=== PATIENT | female | born 1945 | race Caucasian/White ===

== ENCOUNTER 2022-12-01 16:17 | Emergency (ER) | payer MEDICARE, SELFPAY ==
[2022-12-01] VITALS (10 sets, daily range): BP systolic 137–172; BP diastolic 77–95; PULSE 65–88; RESP 14–27; TEMP 36.9; O2SAT 95–98; BMI 24.6
--- NOTE | 2022-12-01 16:38 | CT_ITS ---
The [address] [address] Patient Name: KALINA BRITO MRN: [id number] date: 1945 Sex: F Assigned Patient Location: ER Current Patient Location: ER Accession/Order Number: [id number] Exam Date: 12/01/2022 16:42 Report Date: 12/01/2022 17:07 At the request of: ROBINSON SILVEIRA Procedure: CT stroke head/brain wo con CT stroke head/brain wo con, 12/01/2022 4:42 PM EDT INDICATION: nuero decifeits COMPARISON: 08/28/2018 . TECHNIQUE: Axial CT images of the brain from skull base to vertex, including portions of the face and sinuses, were obtained without contrast. Multiplanar reformatted images were generated and reviewed as needed. Dose reduction techniques were achieved by using automated exposure control and/or adjustment of mA and/or kV according to patient size and/or use of iterative reconstruction technique. FINDINGS: CEREBRUM: Age-appropriate atrophy is present, without visible acute hemorrhage or lesion. Periventricular low density change is demonstrated, consistent with chronic small vessel disease. CEREBELLUM: No edema, hemorrhage, mass, acute infarction, or inappropriate atrophy. BRAINSTEM: No acute infarct, hemorrhage or gross structural abnormality. CSF SPACES: Ventricles, cisterns, and sulci are appropriate for age. No hydrocephalus, subarachnoid hemorrhage, or mass. SKULL: No mass or other significant visible lesion. SINUSES: Limited views demonstrate no significant mucosal thickening or fluid. ORBITS: Limited views are unremarkable. OTHER: None. IMPRESSION: Age-related deep white matter changes consistent with chronic small vessel disease superimposed on overall findings of age-appropriate cortical atrophy. No acute intracranial abnormality is otherwise identified. Critical results were NOTIFIED by TELEPHONE BY Dr. Jermaine Leonard MD to Leila, volunteer services assistant to At 12/01/2022 5:01 PM EDT. Electronically authenticated by: Jermaine LEONARD Date: 12/01/2022 17:07
--- NOTE | 2022-12-01 16:52 | ECG_ITS ---
The [facility] Test Date: 2022-12-01 Pat Name: Peggy Noe Department: Room: - Gender: Female Director Pharmacovigilance: : 1945 Requested By: ARMANI BRICE Order Number: [id number] Reading MD: JOEY BRISCOE Measurements Intervals [place] Rate: 73 P: 76 CO: 150 QRS: 69 QRSD: 80 T: 64 QT: 394 QTc: 420 Interpretive Statements 1100 Sinus rhythm 1102 Sinus arrhythmia 6220 Possible left atrial enlargement 9130 borderline ECG No previous ECG available for comparison Electronically Signed On 12-02-2022 7:19:54 EDT by JOEY BRISCOE
[2022-12-01 17:19] LABS: Basophils Absolute Auto 0.1 10^3/uL (0.0-0.1); Basophils Percent Auto 1.1 % (0.2-2.0); Eosinophils Absolute Auto 0.3 10^3/uL (0.0-0.7); Eosinophils Percent Auto 2.7 % (0.9-7.0); Hematocrit 32.8 % (36.0-48.0); Hemoglobin 10.6 g/dL (12.0-16.0); Immature Granulocytes Abs Auto 0.03 10^3/uL (0.00-0.03); Immature Granulocytes Pct Auto 0.3 % (0.0-0.5); Lymphocytes Absolute Auto 2.1 10^3/uL (1.2-3.8); Lymphocytes Percent Auto 22.8 % (20.5-60.0); Mean Corpuscular HGB Conc 32.3 g/dL (29.9-35.2); Mean Corpuscular Hemoglobin 29.4 pg (26.7-34.0); Mean Corpuscular Volume 91.1 fL (81.0-99.0); Mean Platelet Volume 10.6 fL (9.5-13.5); Monocytes Absolute Auto 0.8 10^3/uL (0.3-0.8); Monocytes Percent Auto 8.5 % (1.7-12.0); Neutrophils Absolute Auto 6.1 10^3/uL (1.4-6.5); Neutrophils Percent Auto 64.6 % (43.0-75.0); Platelet Count 360 10^3/uL (150-450); Red Cell Distribution Width 13.1 % (11.0-15.0); White Blood Count 9.4 10^3/uL (4.0-11.0)
[2022-12-01 17:37] LABS: Alanine Aminotransferase 15 U/L (14-59); Albumin Globulin Ratio 0.8; Albumin Level 3.3 g/dL (3.4-5.0); Alkaline Phosphatase 74 U/L (46-116); Anion Gap 14.5; Aspartate Amino Transferase 14 U/L (15-37); BUN Creatinine Ratio 20.8; Bilirubin Total 0.3 mg/dL (0.2-1.0); Calcium 9.4 mg/dL (8.5-10.1); Carbon Dioxide 24.2 mmol/L (21.0-32.0); Chloride 99 mmol/L (98-107); Estimated GFR (African America 53 (>=60); Estimated GFR (Non-African Ame 44 (>=60); Glucose 90 mg/dL (74-106); Potassium 3.7 mmol/L (3.5-5.1); Sodium 134 mmol/L (136-145); Total Protein 7.3 g/dL (6.4-8.2); Troponin I High Sensitivity 5.9 pg/mL (4.0-51.3)
--- NOTE | 2022-12-01 18:04 | ED_ITS ---
HPI - General Adult General Chief complaint: Neuro Symptoms/Deficit Stated complaint: URTI Time Seen by Provider: 12/01/22 18:03 Source: patient and family Mode of arrival: ambulance History of Present Illness HPI narrative: This document has been composed with a new electronic medical record and [employer] voice recognition system. This document may not fully inaccurately reflect the entirety of the patient encounter. this patient was brought to us by EMS for complaint of weakness and not feeling good for several days. She seemed to indicate that she seemed be having more weakness on her left side. She's had a previous stroke that has never completely cleared up with residual left-sided weakness and choppy speech. This information was provided by her son who came in to assist us in managing her in evaluating her. She does not have a severe headache. She was taken to CT imaging suite from the ambulance. The radiologist called me nearly immediately and it was a negative for acute process CT scan. Upon returning the room reconducted more of a history and physical provided by both the son and soon-to-be [id number] and the patient herself. She was actually a pretty good historian. He says that she's had increasing cough and congestion with thick sputum. She says it is clear. She continues to smoke tobacco products. She's had some diarrhea. She's not had any vomiting. Has not been running a fever at home but she is aware of. She does have nebulizers at home for her underlying lung disease. Related Data Allergies Allergy/AdvReac Type Severity Reaction Status Date / Time prednisone Allergy Intermediate Verified 12/01/22 16:37 Exam Narrative Exam Narrative: as noted above she was taken directly to imaging upon her arrival. Upon returning I found him to be awake alert oriented ?3 fully cooperative not repeating herself denies any head or neck pain or headache. Constitutional Vital Signs - 24 hr 12/01/22 16:30 12/01/22 16:52 12/01/22 16:54 Temperature 98.4 F Pulse Rate 82 81 Pulse Rate [Monitor] 88 Respiratory Rate 20 14 19 Blood Pressure 148/95 H Blood Pressure [Left Arm] 172/77 H Pulse Oximetry 98 97 Oxygen Delivery Method Room Air 12/01/22 16:54 12/01/22 16:54 12/01/22 17:00 Temperature Pulse Rate 85 79 79 Pulse Rate [Monitor] Respiratory Rate 26 H 19 21 Blood Pressure 148/95 H 147/87 H Blood Pressure [Left Arm] Pulse Oximetry 96 97 96 Oxygen Delivery Method 12/01/22 17:15 12/01/22 17:30 12/01/22 17:45 Temperature Pulse Rate 75 65 71 Pulse Rate [Monitor] Respiratory Rate 22 21 16 Blood Pressure 141/85 H 138/84 H 140/80 H Blood Pressure [Left Arm] Pulse Oximetry 96 95 96 Oxygen Delivery Method 12/01/22 17:45 12/01/22 18:00 12/01/22 18:16 Temperature Pulse Rate 79 76 74 Pulse Rate [Monitor] Respiratory Rate 15 19 21 Blood Pressure 140/80 H 141/93 H 137/80 H Blood Pressure [Left Arm] Pulse Oximetry 95 95 Oxygen Delivery Method HENCO Common normals: normocephalic, head/scalp atraumatic and hearing grossly normal bilaterally Head and scalp: normal to inspection Face and sinus: normal facial exam Mouth: oral and palatal mucosa normal Throat: posterior oropharynx normal; uvula not laterally displaced Neck & C-Spine Common normals: full ROM and supple Respiratory Auscultation: rales and rhonchi GI Common normals: Normal to inspection, nondistended, normoactive bowel sounds present Neuro Common normals: oriented x3 and CN's II-XII intact bilaterally Sensorium/orientation: awake, alert, oriented to person, oriented to place and oriented to time Meningeal signs: no meningeal signs; no nuccal rigidity Cranial nerves: CN normal except as noted Speech: abnormal speech (very slight chopped stuttering speech which the son and the patient both ad) Motor exam: no tremor noted and strength abnormal (antigravity muscles left leg slightly weak when compared to her right leg. ) Course Vital Signs Vital signs: Vital Signs Temperature 98.4 F 12/01/22 16:30 Pulse Rate 88 12/01/22 16:30 Respiratory Rate 20 12/01/22 16:30 Blood Pressure 172/77 H 12/01/22 16:30 Pulse Oximetry 98 12/01/22 16:30 Oxygen Delivery Method Room Air 12/01/22 16:30 Temperature 98.4 F 12/01/22 16:30 Pulse Rate 74 12/01/22 18:16 Respiratory Rate 21 12/01/22 18:16 Blood Pressure 137/80 H 12/01/22 18:16 Pulse Oximetry 95 06/06/23 18:00 Oxygen Delivery Method Room Air 12/01/22 16:30 Medical Decision Making MDM Narrative Medical decision making narrative: This document has been composed with a new electronic medical record and dragging voice recognition system. This document may not fully inaccurately reflect the entirety of the patient encounter. Patient's family and my clinical exam confirmed that note of her findings are acute today. Her chest x-ray had some linear atelectasis but her symptoms would suggest appeared acute. Bronchitis. We will go ahead and treat her based on those symptoms and the clinical exam. She is not in any extremis and there is no respiratory distress.She has mild elevation of her renal function tests. Lab Data Labs: Lab Results 12/01/22 Range/Units 16:52 WBC 9.4 (4.0-11.0) 10^3/uL RBC 3.60 L (4.20-5.40) 10^6/uL Hgb 10.6 L (12.0-16.0) g/dL Hct 32.8 L (36.0-48.0) % MCV 91.1 (81.0-99.0) fL MCH 29.4 (26.7-34.0) pg MCHC 32.3 (29.9-35.2) g/dL RDW 13.1 (11.0-15.0) % Plt Count 360 (150-450) 10^3/uL MPV 10.6 (9.5-13.5) fL Neut % (Auto) 64.6 (43.0-75.0) % Lymph % (Auto) 22.8 (20.5-60.0) % [place] % (Auto) 8.5 (1.7-12.0) % Eos % (Auto) 2.7 (0.9-7.0) % Baso % (Auto) 1.1 (0.2-2.0) % Neut # (Auto) 6.1 (1.4-6.5) 10^3/uL Lymph # (Auto) 2.1 (1.2-3.8) 10^3/uL [place] # (Auto) 0.8 (0.3-0.8) 10^3/uL Eos # (Auto) 0.3 (0.0-0.7) 10^3/uL Baso # (Auto) 0.1 (0.0-0.1) 10^3/uL Abs Immat Gran (auto) 0.03 (0.00-0.03) 10^3/uL Imm/Tot Granulo (auto) 0.3 (0.0-0.5) % Sodium 134 L (136-145) mmol/L Potassium 3.7 (3.5-5.1) mmol/L Chloride 99 (98-107) mmol/L Carbon Dioxide 24.2 (21.0-32.0) mmol/L Anion Gap 14.5 BUN 25.0 H (7.0-18.0) mg/dL Creatinine 1.20 H (0.55-1.02) mg/dL Est GFR ( Amer) 53 L (>=60) Est GFR (Non-Af Amer) 44 L (>=60) BUN/Creatinine Ratio 20.8 Glucose 90 (74-106) mg/dL Calcium 9.4 (8.5-10.1) mg/dL Total Bilirubin 0.3 (0.2-1.0) mg/dL AST 14 L (15-37) U/L ALT 15 (14-59) U/L Alkaline Phosphatase 74 (46-116) U/L Troponin I High Sens 5.9 (4.0-51.3) pg/mL Total Protein 7.3 (6.4-8.2) g/dL Albumin 3.3 L (3.4-5.0) g/dL Globulin 4.0 g/dL Albumin/Globulin Ratio 0.8 Discharge Plan Discharge Chief Complaint: Neuro Symptoms/Deficit Referrals: ARMANI BRICE [Primary Care Provider] - 1 week
--- NOTE | 2022-12-01 18:06 | XR_ITS ---
The [place] [id number] Patient Name: KALINA BRITO MRN: [id number] date: 1945 Sex: F Assigned Patient Location: ER Current Patient Location: ER Accession/Order Number: [id number] Exam Date: 12/01/2022 18:17 Report Date: 12/01/2022 19:19 At the request of: ROBINSON SILVEIRA Procedure: XR chest 1V ONE-VIEW CHEST RADIOGRAPH, 12/01/2022 6:17 PM EDT COMPARISON: Chest, 06/06/2022. CLINICAL HISTORY: Cough. Findings and impression: 1. Patient is slightly rotated to the left accentuating cardiomediastinal silhouette to the left of midline. 2. Patient has likely had prior right mastectomy with right axillary node dissection. Correlate with prior surgical history. 3. No acute pulmonary disease. 4. Borderline heart size. 5. No acute osseous abnormality. Electronically authenticated by: Everette MC Date: 12/01/2022 19:19
== END 2022-12-01 19:14 | disposition home or self-care (01) ==
PROVIDERS: Emergency Provider Emergency Medicine Emergency Medical Services; PCP Family Medicine
DX: J20.9 Acute bronchitis, unspecified (principal); I69.328 Other speech and language deficits following cerebral infarction; I69.354 Hemiplegia and hemiparesis following cerebral infarction affecting left non-dominant side; Z72.0 Tobacco use
CPT/HCPCS: 36415; 70450; 71045; 80053; 84484; 85025; 93005; 99285

== ENCOUNTER 2022-12-10 11:54 | Outpatient (OUT) | payer MEDICARE, SELFPAY ==
--- NOTE | 2022-12-10 12:03 | XR_ITS ---
The [place] [id number] Patient Name: KALINA BRITO MRN: [id number] date: 1945 Sex: F Assigned Patient Location: [facility] Current Patient Location: RAD Accession/Order Number: [id number] Exam Date: 12/10/2022 12:10 Report Date: 12/10/2022 12:38 At the request of: ARMANI BRICE Procedure: XR chest 2V EXAM: XR chest 2V HISTORY: COPD J44.1 COMPARISON: 12/01/2022 TECHNIQUE: PA and lateral views of the chest. FINDINGS: There is no focal airspace consolidation or acute infiltrate. The lungs are hyperinflated. The cardiomediastinal silhouette is not enlarged. No evidence of pleural effusion or pneumothorax are identified. No acute osseous abnormality. There is appearance of right mastectomy. IMPRESSION: No acute cardiopulmonary process. Lungs appear hyperinflated, suggestive of obstructive lung disease. Electronically authenticated by: SANDRA SUAREZ Date: 12/10/2022 12:38
== END 2022-12-10 11:55 ==
LOC: RAD 11:56
PROVIDERS: PCP Family Medicine; Visit Provider Family Medicine
DX: J44.1 Chronic obstructive pulmonary disease with (acute) exacerbation (principal)
CPT/HCPCS: 71046

== ENCOUNTER 2023-09-22 00:02 | Emergency (ER) | payer MEDICARE, SELFPAY ==
[2023-09-22] VITALS (19 sets, daily range): BP systolic 148–168; BP diastolic 90–121; PULSE 60–98; RESP 16–27; TEMP 36.5; O2SAT 94–100; BMI 24.1
--- NOTE | 2023-09-22 00:21 | ECG_ITS ---
The [facility] Test Date: 2023-09-22 Pat Name: KALINA BRITO Department: Room: - Gender: Female Embedded Software Engineer: : 1945 Requested By: ARMANI BRICE Order Number: [id number] Reading MD: JOEY BRISCOE Measurements Intervals [place] Rate: 64 P: 55 LA: 144 QRS: 73 QRSD: 76 T: 79 QT: 378 QTc: 387 Interpretive Statements 1100 Sinus rhythm 9110 normal ECG Compared to ECG 12/01/2022 16:52:23 Sinus arrhythmia no longer present Electronically Signed On 09-22-2023 23:06:08 EDT by JOEY BRISCOE
--- NOTE | 2023-09-22 00:21 | XR_ITS ---
The [place] [id number] Patient Name: KALINA BRITO MRN: [id number] date: 1945 Sex: F Assigned Patient Location: ER Current Patient Location: ER Accession/Order Number: [id number] Exam Date: 09/22/2023 00:28 Report Date: 09/22/2023 01:14 At the request of: PADMINI BO Procedure: XR chest 1V EXAMINATION: XR chest 1V HISTORY: SOB COMPARISON: 12/01/2022 FINDINGS: There is no focal airspace consolidation. There is no appreciable pneumothorax or pleural effusion. The pulmonary vascularity is within normal limits for technique. The cardiomediastinal silhouette is within normal limits. XR/XR chest 1V IMPRESSION: Lungs are clear of airspace consolidation. Electronically authenticated by: CHRISTA MILNER Date: 09/22/2023 01:14
--- NOTE | 2023-09-22 00:22 | ED.SOB1 ---
HPI - SOB/Dyspnea General Chief Complaint: Shortness of Breath/Dyspnea Stated Complaint: SOB Time Seen by Provider: 09/22/23 00:10 Source: patient Mode of arrival: Wheelchair Limitations: no limitations History of Present Illness HPI Narrative: 78-year-old female presents for shortness of breath. She has had cold symptoms for a week and she ran out of her inhaler 2 to 3 days ago. Tonight she developed worsening shortness of breath and has been wheezing and she came in here. She has been coughing up a small amount of white phlegm but has not had a fever or hemoptysis. She does not complain to me of chest pain. Related Data Previous Rx's ?Medication ?Instructions ?Recorded albuterol sulfate 90 mcg/actuation 2 inh inhalation Q4H PRN shortness 09/22/23 aerosol inhaler of breath or wheezing #8.5 grams azithromycin 250 mg tablet See Rx Instructions PO .COMPLEX #6 09/22/23 (Zithromax Z-René) tabs Allergies Allergy/AdvReac Type Severity Reaction Status Date / Time prednisone Allergy Intermediate Verified 09/22/23 00:10 Review of Systems ROS Narrative A ten point review of systems is negative except as noted above. Exam Narrative Exam Narrative: Nurses note and vital signs reviewed and patient is not hypoxic. General: The patient appears well and in no apparent distress. Patient is resting comfortably on cart. Skin: Warm, dry, no pallor noted. There is no rash noted. Head: Normocephalic, atraumatic Eye: Normal conjunctiva, no drainage Ears, Nose, Mouth, and Throat: oral mucosa is moist. Nares patent. Cardiovascular: Regular Rate and Rhythm Respiratory: Bilateral rhonchi present, breath sounds equal Back: non-tender GI: Soft and nontender Musculoskeletal: The patient has no evidence of calf tenderness, no pitting edema, symmetrical pulses noted bilaterally Neurological: A&O, normal speech Psychiatric: Cooperative Constitutional Vital Signs, click to edit/add: Last Vital Signs Temp 97.7 F 09/22/23 00:07 Pulse 68 09/22/23 01:33 Resp 16 09/22/23 01:33 BP 168/90 H 09/22/23 00:07 Pulse Ox 99 09/22/23 01:33 O2 Del Method Room Air 09/22/23 01:33 Course Vital Signs Vital signs: Vital Signs Temperature 97.7 F 09/22/23 00:07 Pulse Rate 82 09/22/23 00:07 Respiratory Rate 18 09/22/23 00:07 Blood Pressure 168/90 H 09/22/23 00:07 Pulse Oximetry 97 09/22/23 00:07 Oxygen Delivery Method Room Air 09/22/23 00:07 Temperature 97.7 F 09/22/23 00:07 Pulse Rate 68 09/22/23 01:33 Respiratory Rate 16 09/22/23 01:33 Blood Pressure 168/90 H 09/22/23 00:07 Pulse Oximetry 99 09/22/23 01:33 Oxygen Delivery Method Room Air 09/22/23 01:33 MDM - SOB/Dyspnea MDM Narrative Medical decision making narrative: The patient is feeling much better after aerosol treatments and IV Solu-Medrol. She is being discharged home. Findings are discussed with the patient. She is comfortable with the plan of being discharged home. Differential Diagnosis Differential diagnosis: Likely acute exacerbation of chronic obstructive airways disease, congestive heart failure, community acquired pneumonia and other (COVID, influenza) Lab Data Attestation: I reviewed the patient's lab results. Labs: Lab Results 09/22/23 09/22/23 Range/Units 00:10 00:15 WBC 9.4 (4.0-11.0) 10^3/uL RBC 3.57 L (4.20-5.40) 10^6/uL Hgb 10.8 L (12.0-16.0) g/dL Hct 33.8 L (36.0-48.0) % MCV 94.7 (81.0-99.0) fL MCH 30.3 (26.7-34.0) pg MCHC 32.0 (29.9-35.2) g/dL RDW 13.7 (11.0-15.0) % Plt Count 318 (150-450) 10^3/uL MPV 10.4 (9.5-13.5) fL Neut % (Auto) 48.8 (43.0-75.0) % Lymph % (Auto) 39.0 (20.5-60.0) % [place] % (Auto) 6.5 (1.7-12.0) % Eos % (Auto) 4.1 (0.9-7.0) % Baso % (Auto) 1.5 (0.2-2.0) % Neut # (Auto) 4.6 (1.4-6.5) 10^3/uL Lymph # (Auto) 3.7 (1.2-3.8) 10^3/uL [place] # (Auto) 0.6 (0.3-0.8) 10^3/uL Eos # (Auto) 0.4 (0.0-0.7) 10^3/uL Baso # (Auto) 0.1 (0.0-0.1) 10^3/uL Abs Immat Gran (auto) 0.01 (0.00-0.03) 10^3/uL Imm/Tot Granulo (auto) 0.1 (0.0-0.5) % Sodium 143 (136-145) mmol/L Potassium 3.8 (3.5-5.1) mmol/L Chloride 108 H (98-107) mmol/L Carbon Dioxide 28.2 (21.0-32.0) mmol/L Anion Gap 10.6 BUN 22.0 H (7.0-18.0) mg/dL Creatinine 1.19 H (0.55-1.02) mg/dL Est GFR ( Amer) 53 L (>=60) Est GFR (Non-Af Amer) 44 L (>=60) BUN/Creatinine Ratio 18.5 Glucose 90 (74-106) mg/dL Calcium 9.0 (8.5-10.1) mg/dL Troponin I High Sens 7.7 (4.0-51.3) pg/mL Influenza Type A Ag Negative Influenza Type B Ag Negative SARS-CoV-2 Ag (CV2AG) Negative (NEGATIVE) Imaging Data Chest x-ray: Radiologist's impression: ITS Impressions Chest X-Ray 09/22/23 00:21 IMPRESSION: Lungs are clear of airspace consolidation. Electronically authenticated by: CHRISTA MILNER Date: 09/22/2023 01:14 ECG Data Attestation: I personally reviewed and interpreted this ECG as follows: (EKG on my interpretation shows normal sinus rhythm with a rate of 64) Discharge Plan Discharge Stand Alone Forms: Portal Instructions Chief Complaint: Shortness of Breath/Dyspnea Clinical Impression: Acute exacerbation of chronic obstructive pulmonary disease Patient Disposition: Home, Self-Care Time of Disposition Decision: 01:55 Condition: Good Mode of Transportation: Private Vehicle Prescriptions / Home Meds: New azithromycin [Zithromax Z-René] 250 mg tablet See Rx Instructions .ROUTE .COMPLEX Qty: 6 0RF Rx Instructions: For 250 mg dose pack: take 500 mg today (day 1), then 250 mg for 4 days (days 2-5) albuterol sulfate 90 mcg/actuation HFA aerosol inhaler 2 inh inhalation Q4H PRN (Reason: shortness of breath or wheezing) Qty: 8.5 0RF Print Language: Slovenian Instructions: COPD (Chronic Obstructive Pulmonary Disease) (ED) Referrals: Cassy Young MD [Primary Care Provider] - 1 week
[2023-09-22 00:28] LABS: Basophils Absolute Auto 0.1 10^3/uL (0.0-0.1); Basophils Percent Auto 1.5 % (0.2-2.0); Eosinophils Absolute Auto 0.4 10^3/uL (0.0-0.7); Eosinophils Percent Auto 4.1 % (0.9-7.0); Hematocrit 33.8 % (36.0-48.0); Hemoglobin 10.8 g/dL (12.0-16.0); Immature Granulocytes Abs Auto 0.01 10^3/uL (0.00-0.03); Immature Granulocytes Pct Auto 0.1 % (0.0-0.5); Lymphocytes Absolute Auto 3.7 10^3/uL (1.2-3.8); Mean Corpuscular Hemoglobin 30.3 pg (26.7-34.0); Mean Corpuscular Volume 94.7 fL (81.0-99.0); Mean Platelet Volume 10.4 fL (9.5-13.5); Monocytes Absolute Auto 0.6 10^3/uL (0.3-0.8); Monocytes Percent Auto 6.5 % (1.7-12.0); Neutrophils Absolute Auto 4.6 10^3/uL (1.4-6.5); Neutrophils Percent Auto 48.8 % (43.0-75.0); Platelet Count 318 10^3/uL (150-450); Red Blood Count 3.57 10^6/uL (4.20-5.40); Red Cell Distribution Width 13.7 % (11.0-15.0); White Blood Count 9.4 10^3/uL (4.0-11.0)
[2023-09-22] MEDS: METHYLPREDNISOLONE SOD SUCC PF 125 MG/2 ML VIAL IVP (00:37)
[2023-09-22] MEDS: ALBUTEROL SULFATE 2.5 MG/3 ML VIAL NEB IH ×2 (00:39→01:25)
[2023-09-22 00:40] LABS: Influenza Virus A Antigen Negative; Influenza Virus B Antigen Negative; Internal Control Within Normal Limits; SARS-CoV-2 Ag NEGATIVE (NEGATIVE)
[2023-09-22 00:47] LABS: Anion Gap 10.6; BUN Creatinine Ratio 18.5; Carbon Dioxide 28.2 mmol/L (21.0-32.0); Chloride 108 mmol/L (98-107); Estimated GFR (African America 53 (>=60); Estimated GFR (Non-African Ame 44 (>=60); Glucose 90 mg/dL (74-106); Potassium 3.8 mmol/L (3.5-5.1); Sodium 143 mmol/L (136-145); Troponin I High Sensitivity 7.7 pg/mL (4.0-51.3)
== END 2023-09-22 02:08 | disposition home or self-care (01) ==
PROVIDERS: Emergency Provider Emergency Medicine; PCP Family Medicine
DX: J44.1 Chronic obstructive pulmonary disease with (acute) exacerbation (principal); Z20.822 Contact with and (suspected) exposure to COVID-19
CPT/HCPCS: 36415; 71045; 80048; 84484; 85025; 87804; 87811; 93005; 94640; 96374; 99285; J2930

== ENCOUNTER 2024-05-16 18:27 | Emergency (ER) | payer MEDICARE, SELFPAY ==
[2024-05-16] VITALS (21 sets, daily range): BP systolic 127–174; BP diastolic 88–104; PULSE 61–92; TEMP 37.1; O2SAT 91–98; BMI 21.6
--- NOTE | 2024-05-16 19:02 | XR_ITS ---
The [address] [address] Patient Name: KALINA BRITO MRN: [id number] date: 1945 Sex: F Assigned Patient Location: ER Current Patient Location: Accession/Order Number: [id number] Exam Date: 05/16/2024 19:15 Report Date: 05/16/2024 23:04 At the request of: ARLET QUINTERO Procedure: XR chest 1V EXAM: XR chest 1V HISTORY: Dyspnea COMPARISON: Chest radiograph dated 09/22/2023. TECHNIQUE: One view of the chest was obtained. FINDINGS: The cardiac silhouette is stable in size. Aortic atherosclerotic disease is seen. The lungs are clear. There is no significant pneumothorax or pleural effusion. No acute osseous abnormality is seen. Right axillary surgical clips are noted. XR/XR chest 1V IMPRESSION: 1. No acute cardiopulmonary abnormality. Electronically authenticated by: Ralph VIZCARRA Date: 05/16/2024 23:04
--- NOTE | 2024-05-16 19:02 | ECG_ITS ---
The [facility] Test Date: 2024-05-16 Pat Name: KALINA BRITO Department: Room: - Gender: Female Pipeman: : 1945 Requested By: ARMANI BRICE Order Number: [id number] Reading MD: JOEY BRISCOE Measurements Intervals [place] Rate: 69 P: 64 NM: 150 QRS: 32 QRSD: 82 T: 63 QT: 386 QTc: 406 Interpretive Statements 1100 Sinus rhythm 9110 normal ECG Compared to ECG 09/22/2023 00:12:01 No significant changes Electronically Signed On 05-16-2024 23:11:15 EST by JOEY BRISCOE
--- NOTE | 2024-05-16 19:10 | ED.GENADUL1 ---
HPI HPI - General Adult General Chief complaint: Shortness of Breath/Dyspnea Stated complaint: SOB Time Seen by Provider: 05/16/24 19:01 Source: patient Mode of arrival: Wheelchair Limitations: no limitations History of Present Illness HPI narrative: Patient is a 78-year-old female with a history of COPD who presents to the emergency department for increased shortness of breath and cough. She states she ran out of her inhaler several days ago and her primary care provider was supposed to send the prescription to a different pharmacy when [facility] closed but she has not received it. She denies any fevers. She has some discomfort in the chest when she coughs. No sputum production or hemoptysis. Her legs have been swollen. She states she takes a water pill for this. No vomiting or diarrhea. No medications taken prior to arrival. Related Data Home Medications ?Medication ?Instructions ?Recorded ?Confirmed aspirin 25 mg-dipyridamole 200 mg 1 cap PO BID 05/16/24 05/16/24 capsule,ext.release 12 hr multiphase atorvastatin 40 mg tablet 40 mg PO DAILY 05/16/24 05/16/24 diltiazem HCl 180 mg 180 mg PO Q24H 05/16/24 05/16/24 capsule,extended release 24 hr fluoxetine 20 mg capsule 20 mg PO DAILY 05/16/24 05/16/24 Previous Rx's ?Medication ?Instructions ?Recorded albuterol sulfate 90 mcg/actuation 2 inh inhalation Q4H PRN shortness 09/22/23 aerosol inhaler of breath or wheezing #8.5 grams azithromycin 250 mg tablet See Rx Instructions PO .COMPLEX #6 09/22/23 (Zithromax Z-René) tabs albuterol sulfate 90 mcg/actuation 2 inh inhalation Q4H PRN shortness 05/16/24 aerosol inhaler of breath or wheezing #8.5 grams doxycycline hyclate 100 mg tablet 100 mg PO BID 10 days #14 tabs 05/16/24 methylprednisolone 4 mg tablets in See Rx Instructions .Route 05/16/24 a dose pack (Medrol (René)) .COMPLEX #21 ea Allergies Allergy/AdvReac Type Severity Reaction Status Date / Time prednisone AdvReac Intermediate tachycardia Verified 05/16/24 18:42 Opioid HPI Opioid Management Most Recent Opioid Data: No Data to Display Review of Systems ROS Constitutional Denies: fever or chills Ears, nose, mouth, and throat Denies: throat pain or nasal congestion Cardiovascular Reports: edema and swelling of feet/ankles Respiratory Reports: shortness of breath, cough and wheezing Gastrointestinal Denies: nausea, vomiting or diarrhea Integumentary/Breast Denies: rash Neurological Denies: numbness in extremities or weakness in extremities Hematologic/Lymphatic Denies: easy bruising or easy bleeding PFSH PFSH Social History Little interest or pleasure in doing things: not at all Feeling down, depressed, or hopeless: not at all Exam Narrative Exam Narrative: Gen.: Awake, alert, in no distress Head: Normocephalic, atraumatic ENT: Moist mucous membranes, bilateral TMs clear, no pharyngeal erythema Respiratory: No respiratory distress, inspiratory and expiratory wheezing globally Cardio: Regular rate and rhythm Extremities: Moves extremities equally, 1+ pitting edema to the bilateral lower extremities with no erythema or drainage Psych: Normal mood and affect Neuro: No focal neuro deficit Skin: Warm, dry, intact Constitutional Vital Signs, click to edit/add: Last Vital Signs Temp 98.8 F 05/16/24 18:43 Pulse 74 05/16/24 21:20 Resp 20 05/16/24 21:20 BP 172/88 H 05/16/24 21:00 Pulse Ox 93 L 05/16/24 21:20 O2 Del Method Room Air 05/16/24 19:40 Course Vital Signs Vital signs: Vital Signs Temperature 98.8 F 05/16/24 18:43 Pulse Rate 92 H 05/16/24 18:43 Respiratory Rate 22 H 05/16/24 18:43 Blood Pressure 127/104 H 05/16/24 18:43 Pulse Oximetry 95 05/16/24 18:43 Oxygen Delivery Method Room Air 05/16/24 18:43 Temperature 98.8 F 05/16/24 18:43 Pulse Rate 74 05/16/24 21:20 Respiratory Rate 20 05/16/24 21:20 Blood Pressure 172/88 H 05/16/24 21:00 Pulse Oximetry 93 L 05/16/24 21:20 Oxygen Delivery Method Room Air 05/16/24 19:40 Medical Decision Making MDM Narrative Medical decision making narrative: Patient was given a breathing treatment, Solu-Medrol. She has an allergy to prednisone, but states that she has taken it in the past it just sometimes makes her feel like her heart is racing. She otherwise tolerates it well. She tolerated Solu-Medrol in the emergency department with no difficulty. She maintained stable vital signs, no hypoxia in the ER. She reports feeling better after nebulizer breathing treatment. Chest x-ray is stable, labs are unremarkable. I discussed inpatient versus outpatient management with the patient and she would like to go home. She was treated with doxycycline, Medrol Dosepak and an albuterol inhaler. Follow-up with PCP and return to the ER if symptoms change or worsen. SUPERVISED APC VISIT, PHYSICIAN ATTESTATION: Based on the medical record the care appears appropriate. ? Medical Records Medical records reviewed: Yes I reviewed the patient's medical records Lab Data Lab results reviewed: Yes I reviewed the patient's lab results Labs: Lab Results 05/16/24 05/16/24 Range/Units 19:30 20:04 WBC 7.2 (4.0-11.0) 10^3/uL RBC 3.43 L (4.20-5.40) 10^6/uL Hgb 10.4 L (12.0-16.0) g/dL Hct 32.3 L (36.0-48.0) % MCV 94.2 (81.0-99.0) fL MCH 30.3 (26.7-34.0) pg MCHC 32.2 (29.9-35.2) g/dL RDW 13.4 (11.0-15.0) % Plt Count 309 (150-450) 10^3/uL MPV 10.3 (9.5-13.5) fL Neut % (Auto) 46.3 (43.0-75.0) % Lymph % (Auto) 40.3 (20.5-60.0) % [place] % (Auto) 8.0 (1.7-12.0) % Eos % (Auto) 3.6 (0.9-7.0) % Baso % (Auto) 1.7 (0.2-2.0) % Neut # (Auto) 3.4 (1.4-6.5) 10^3/uL Lymph # (Auto) 2.9 (1.2-3.8) 10^3/uL [place] # (Auto) 0.6 (0.3-0.8) 10^3/uL Eos # (Auto) 0.3 (0.0-0.7) 10^3/uL Baso # (Auto) 0.1 (0.0-0.1) 10^3/uL Abs Immat Gran (auto) 0.01 (0.00-0.03) 10^3/uL Imm/Tot Granulo (auto) 0.1 (0.0-0.5) % PT 10.1 (9.0-11.6) sec INR 0.95 VBG pH 7.367 (7.330-7.430) VBG pCO2 45.6 (40.0-52.0) mmHg Sodium 140 (136-145) mmol/L Potassium 4.3 (3.5-5.1) mmol/L Chloride 106 (98-107) mmol/L Carbon Dioxide 26.7 (21.0-32.0) mmol/L Anion Gap 11.6 BUN 18.0 (7.0-18.0) mg/dL Creatinine 1.33 H (0.55-1.02) mg/dL Est GFR ( Amer) 47 L (>=60 mL/min/1.73m^2) Est GFR (Non-Af Amer) 39 L (>=60 mL/min/1.73m^2) BUN/Creatinine Ratio 13.5 Glucose 94 (74-106) mg/dL Calcium 9.5 (8.5-10.1) mg/dL Total Bilirubin 0.3 (0.2-1.0) mg/dL AST 13 L (15-37) U/L ALT 12 L (14-59) U/L Alkaline Phosphatase 65 (46-116) U/L Troponin I High Sens 8.5 (4.0-51.3) pg/mL NT-Pro-B Natriuret Pep 431.0 (<=1800.0) pg/mL Total Protein 6.3 L (6.4-8.2) g/dL Albumin 3.0 L (3.4-5.0) g/dL Globulin 3.3 g/dL Albumin/Globulin Ratio 0.9 Influenza Type A Ag Negative Influenza Type B Ag Negative SARS-CoV-2 Ag (CV2AG) Negative (NEGATIVE) Imaging Data Chest x-ray: Attestation: I have reviewed the pertinent imaging results. ECG Data Attestation: I personally reviewed and interpreted this ECG as follows: (Normal sinus rhythm at a rate of [address] elevation or ectopy. EKG reviewed by attending physician) Discharge Plan Discharge Chief Complaint: Shortness of Breath/Dyspnea Clinical Impression: COPD (chronic obstructive pulmonary disease) Patient Disposition: Home, Self-Care Time of Disposition Decision: 21:03 Condition: Good Prescriptions / Home Meds: New methylprednisolone [Medrol (René)] 4 mg tablets,dose pack See Rx Instructions .ROUTE .COMPLEX Qty: 21 0RF Rx Instructions: Taper as directed albuterol sulfate 90 mcg/actuation HFA aerosol inhaler 2 inh inhalation Q4H PRN (Reason: shortness of breath or wheezing) Qty: 8.5 0RF doxycycline hyclate 100 mg tablet 100 mg PO BID 10 Days Qty: 14 0RF No Action azithromycin [Zithromax Z-René] 250 mg tablet See Rx Instructions .ROUTE .COMPLEX Qty: 6 0RF Rx Instructions: For 250 mg dose pack: take 500 mg today (day 1), then 250 mg for 4 days (days 2-5) albuterol sulfate 90 mcg/actuation HFA aerosol inhaler 2 inh inhalation Q4H PRN (Reason: shortness of breath or wheezing) Qty: 8.5 0RF aspirin-dipyridamole 25-200 mg capsule, ER multiphase 12 hr 1 cap PO BID atorvastatin 40 mg tablet 40 mg PO DAILY diltiazem HCl 180 mg capsule,extended release 24hr 180 mg PO Q24H fluoxetine 20 mg capsule 20 mg PO DAILY Print Language: Belgian Instructions: COPD (Chronic Obstructive Pulmonary Disease) (ED) Referrals: Cassy Young MD [Primary Care Provider] - 1 week Discharge Date/Time: 05/16/24 21:48
[2024-05-16] MEDS: ALBUTEROL SULFATE 2.5 MG/3 ML VIAL NEB IH (19:31)
[2024-05-16 19:57] LABS: Basophils Absolute Auto 0.1 10^3/uL (0.0-0.1); Basophils Percent Auto 1.7 % (0.2-2.0); Eosinophils Absolute Auto 0.3 10^3/uL (0.0-0.7); Eosinophils Percent Auto 3.6 % (0.9-7.0); Hematocrit 32.3 % (36.0-48.0); Hemoglobin 10.4 g/dL (12.0-16.0); Immature Granulocytes Abs Auto 0.01 10^3/uL (0.00-0.03); Immature Granulocytes Pct Auto 0.1 % (0.0-0.5); Lymphocytes Absolute Auto 2.9 10^3/uL (1.2-3.8); Lymphocytes Percent Auto 40.3 % (20.5-60.0); Mean Corpuscular HGB Conc 32.2 g/dL (29.9-35.2); Mean Corpuscular Hemoglobin 30.3 pg (26.7-34.0); Mean Corpuscular Volume 94.2 fL (81.0-99.0); Mean Platelet Volume 10.3 fL (9.5-13.5); Monocytes Absolute Auto 0.6 10^3/uL (0.3-0.8); Neutrophils Absolute Auto 3.4 10^3/uL (1.4-6.5); Neutrophils Percent Auto 46.3 % (43.0-75.0); Platelet Count 309 10^3/uL (150-450); Red Blood Count 3.43 10^6/uL (4.20-5.40); Red Cell Distribution Width 13.4 % (11.0-15.0); White Blood Count 7.2 10^3/uL (4.0-11.0)
[2024-05-16 19:59] LABS: PCO2 VBG 45.6 mmHg (40.0-52.0); pH VBG 7.367 (7.330-7.430)
[2024-05-16] MEDS: METHYLPREDNISOLONE SOD SUCC PF 125 MG/2 ML VIAL IVP (20:04)
[2024-05-16 20:14] LABS: INR 0.95; Prothrombin Time 10.1 sec (9.0-11.6)
[2024-05-16 20:18] LABS: Alanine Aminotransferase 12 U/L (14-59); Albumin Globulin Ratio 0.9; Alkaline Phosphatase 65 U/L (46-116); Anion Gap 11.6; Aspartate Amino Transferase 13 U/L (15-37); BUN Creatinine Ratio 13.5; Bilirubin Total 0.3 mg/dL (0.2-1.0); Calcium 9.5 mg/dL (8.5-10.1); Carbon Dioxide 26.7 mmol/L (21.0-32.0); Chloride 106 mmol/L (98-107); Estimated GFR (African America 47 (>=60 mL/min/1.73m^2); Estimated GFR (Non-African Ame 39 (>=60 mL/min/1.73m^2); Globulin 3.3 g/dL; Glucose 94 mg/dL (74-106); Potassium 4.3 mmol/L (3.5-5.1); Sodium 140 mmol/L (136-145); Total Protein 6.3 g/dL (6.4-8.2)
[2024-05-16 20:25] LABS: Troponin I High Sensitivity 8.5 pg/mL (4.0-51.3)
[2024-05-16 20:37] LABS: Influenza Virus A Antigen Negative; Influenza Virus B Antigen Negative; Internal Control Within Normal Limits; SARS-CoV-2 Ag NEGATIVE (NEGATIVE)
[2024-05-16] MEDS: ALBUTEROL SULFATE 200 PUFF/6.7 GM INHALER IH (21:30)
[2024-05-16] MEDS: DOXYCYCLINE MONOHYDRATE 100 MG CAPSULE PO (21:31)
== END 2024-05-16 21:48 | disposition home or self-care (01) ==
PROVIDERS: Physician Assistant; Emergency Provider Internal Medicine; PCP Family Medicine
DX: J44.9 Chronic obstructive pulmonary disease, unspecified (principal); R06.02 Shortness of breath
CPT/HCPCS: 36415; 71045; 80053; 82800; 83880; 84484; 85025; 85610; 87804; 87811; 93005; 94640; 96374; 99285; J2919

== ENCOUNTER 2024-06-19 14:46 | Emergency (ER) | payer MEDICARE, SELFPAY ==
[2024-06-19] VITALS (14 sets, daily range): BP systolic 146–149; BP diastolic 83–86; PULSE 74–107; TEMP 36.8; O2SAT 93–99; BMI 22.5
--- NOTE | 2024-06-19 15:04 | XR_ITS ---
[facility] [id number] Patient Name: KALINA BRITO MRN: [id number] date: 1945 Sex: F Assigned Patient Location: ER Current Patient Location: ER Accession/Order Number: [id number] Exam Date: 06/19/2024 15:46 Report Date: 06/19/2024 16:21 At the request of: DEVAN MARMOLEJO Procedure: XR chest 1V EXAM: XR chest 1V HISTORY: sob COMPARISON: 05/16/2024 TECHNIQUE: AP portable FINDINGS: LUNGS: No significant pulmonary parenchymal abnormalities. VASCULATURE: No increased pulmonary vasculature. PLEURA: No pneumothorax, effusion, or pleural thickening. CARDIAC: No cardiomegaly or cardiac silhouette abnormality. MEDIASTINUM: No visible mass or adenopathy. BONES: No fracture or visible bone lesion. OTHER: Negative. XR/XR chest 1V IMPRESSION: No acute cardiopulmonary process Electronically authenticated by: MERLINE OLSON Date: 06/19/2024 16:21
--- NOTE | 2024-06-19 15:04 | ECG_ITS ---
[facility] Test Date: 2024-06-19 Pat Name: KALINA BRITO Department: Room: - Gender: Female [employer]: : 1945 Requested By: [id number] Order Number: [id number] Reading MD: JOEY BRISCOE Measurements Intervals Rebuck Rate: 96 P: 72 AR: 162 QRS: 74 QRSD: 80 T: 70 QT: 350 QTc: 404 Interpretive Statements 1100 Sinus rhythm 9110 normal ECG Compared to ECG 05/16/2024 18:51:02 No significant changes Electronically Signed On 06-19-2024 22:40:34 EST by JOEY BRISCOE
--- NOTE | 2024-06-19 15:09 | ED_ITS ---
HPI HPI - General Adult General Chief complaint: Chest Pain Stated complaint: FLU LIKE SYMPTOMS Time Seen by Provider: 06/19/24 15:04 Source: patient Mode of arrival: Wheelchair Limitations: no limitations History of Present Illness HPI narrative: Patient is a 78-year-old female who is presenting to the ER with chief complaint nausea and vomiting for the past couple days. Patient lives at home with family. Patient has not been able to keep any food down the last couple days, she has been able to keep intermittent liquids down. Today she started having some chest tightness and shortness of breath. Patient does have a history of COPD and emphysema. She does not wear oxygen during the day or nighttime. Patient does do breathing treatments at home as needed. Patient has no headache or neck pain. All systems are negative except as noted/marked. All systems reviewed and otherwise negative. Nurses note and vital signs reviewed and patient is not hypoxic. General: The patient appears well and in no apparent distress. Patient is resting comfortably on cart. Patient is not toxic, lethargic, or listless Skin: Warm, dry, no pallor noted. There is no rash noted. No petechiae, purpura. Head: Normocephalic, atraumatic Eye: Normal conjunctiva, no drainage, EOMI. PERRL Ears, Nose, Mouth, and Throat: oral mucosa is slightly dry. Nares patent. Mouth without vesicles. Cardiovascular: Regular Rate and Rhythm, no murmur, gallop, rub Respiratory: Decreased breath sounds bilateral, patient is in no distress, no accessory muscle use, lungs are clear to auscultation, minimal wheezing: NO rales or rhonchi equal breath sounds bilateral,. Back: non-tender, no CVA tenderness bilaterally to percussion. No CT LS midline pain GI: no tenderness to palpation, no masses appreciated. No rebound, guarding, or rigidity noted. No distention Musculoskeletal: Patient has full range of motion of all of the extremities, no motor, sensory, or focal neurological deficits Neurological: A&O x4, normal speech Psychiatric: Cooperative Related Data Home Medications ?Medication ?Instructions ?Recorded ?Confirmed aspirin 25 mg-dipyridamole 200 mg 1 cap PO BID 05/16/24 05/16/24 capsule,ext.release 12 hr multiphase atorvastatin 40 mg tablet 40 mg PO DAILY 05/16/24 06/19/24 diltiazem HCl 180 mg 180 mg PO Q24H 05/16/24 06/19/24 capsule,extended release 24 hr fluoxetine 20 mg capsule 20 mg PO DAILY 05/16/24 06/19/24 spironolactone 50 mg tablet 50 mg PO DAILY 06/19/24 06/19/24 Previous Rx's ?Medication ?Instructions ?Recorded albuterol sulfate 90 mcg/actuation 2 inh inhalation Q4H PRN shortness 09/22/23 aerosol inhaler of breath or wheezing #8.5 grams albuterol sulfate 90 mcg/actuation 2 inh inhalation Q4H PRN shortness 05/16/24 aerosol inhaler of breath or wheezing #8.5 grams ondansetron 4 mg disintegrating 4 mg PO Q4H PRN nausea and 06/19/24 tablet vomiting 3 days #6 tabs promethazine 25 mg rectal 25 mg IN Q6H PRN nausea and 06/19/24 suppository vomiting #6 ea Allergies Allergy/AdvReac Type Severity Reaction Status Date / Time prednisone AdvReac Intermediate tachycardia Verified 05/16/24 18:42 Opioid HPI Opioid Management Most Recent Opioid Data: Last Pain Scale 5 06/19/24 15:11 06/19/24 PFSH PFSH Social History Little interest or pleasure in doing things: not at all Feeling down, depressed, or hopeless: not at all Exam Constitutional Vital Signs, click to edit/add: Last Vital Signs Temp 98.2 F 06/19/24 14:50 Pulse 84 06/19/24 16:16 Resp 24 H 06/19/24 14:50 BP 146/83 H 06/19/24 14:50 Pulse Ox 95 06/19/24 16:16 O2 Del Method Room Air 06/19/24 16:16 Course Vital Signs Vital signs: Vital Signs Temperature 98.2 F 06/19/24 14:50 Pulse Rate 107 H 06/19/24 14:50 Respiratory Rate 24 H 06/19/24 14:50 Blood Pressure 146/83 H 06/19/24 14:50 Pulse Oximetry 94 L 06/19/24 14:50 Oxygen Delivery Method Room Air 06/19/24 14:50 Temperature 98.2 F 06/19/24 14:50 Pulse Rate 84 06/19/24 16:16 Respiratory Rate 24 H 06/19/24 14:50 Blood Pressure 146/83 H 06/19/24 14:50 Pulse Oximetry 95 06/19/24 16:16 Oxygen Delivery Method Room Air 06/19/24 16:16 Medical Decision Making MDM Narrative Medical decision making narrative: Patient was given IV Zofran. Patient's blood pressure was initially low normal, her blood pressure did respond without giving her IV fluids. Patient was given aspirin prophylactically along with IV Zofran. Patient was also given a DuoNeb breathing treatment. Patient chest x-ray [place] [address], and troponin were negative. Influenza, RSV and COVID were negative. Lab work shows no other significant findings. Patient is been drinking water well without difficulty. Urine shows no other significant. Patient will be sent home with prescription for Zofran OTD and Phenergan suppositories. Patient will follow-up with PCP, no questions at discharge. Patient is happy to go home, especially with the holidays. She is very thankful for help. Lab Data Labs: Lab Results 06/19/24 06/19/24 06/19/24 Range/Units 14:41 15:05 15:41 WBC 9.1 (4.0-11.0) 10^3/uL RBC 3.48 L (4.20-5.40) 10^6/uL Hgb 10.6 L (12.0-16.0) g/dL Hct 32.5 L (36.0-48.0) % MCV 93.4 (81.0-99.0) fL MCH 30.5 (26.7-34.0) pg MCHC 32.6 (29.9-35.2) g/dL RDW 13.4 (11.0-15.0) % Plt Count 352 (150-450) 10^3/uL MPV 10.2 (9.5-13.5) fL Neut % (Auto) 58.7 (43.0-75.0) % Lymph % (Auto) 29.7 (20.5-60.0) % [place] % (Auto) 6.8 (1.7-12.0) % Eos % (Auto) 2.1 (0.9-7.0) % Baso % (Auto) 1.4 (0.2-2.0) % Neut # (Auto) 5.3 (1.4-6.5) 10^3/uL Lymph # (Auto) 2.7 (1.2-3.8) 10^3/uL [place] # (Auto) 0.6 (0.3-0.8) 10^3/uL Eos # (Auto) 0.2 (0.0-0.7) 10^3/uL Baso # (Auto) 0.1 (0.0-0.1) 10^3/uL Abs Immat Gran (auto) 0.12 H (0.00-0.03) 10^3/uL Imm/Tot Granulo (auto) 1.3 H (0.0-0.5) % PT 9.8 (9.0-11.6) sec INR <0.93 VBG pH 7.457 H (7.330-7.430) VBG pCO2 40.9 (40.0-52.0) mmHg Sodium 140 (136-145) mmol/L Potassium 3.6 (3.5-5.1) mmol/L Chloride 104 (98-107) mmol/L Carbon Dioxide 30.1 (21.0-32.0) mmol/L Anion Gap 9.5 BUN 23.0 H (7.0-18.0) mg/dL Creatinine 1.37 H (0.55-1.02) mg/dL Est GFR ( Amer) 45 L (>=60 mL/min/1.73m^2) Est GFR (Non-Af Amer) 37 L (>=60 mL/min/1.73m^2) BUN/Creatinine Ratio 16.8 Glucose 110 H (74-106) mg/dL Calcium 9.0 (8.5-10.1) mg/dL Total Bilirubin 0.2 (0.2-1.0) mg/dL AST 15 (15-37) U/L ALT 16 (14-59) U/L Alkaline Phosphatase 58 (46-116) U/L Troponin I High Sens 8.2 (4.0-51.3) pg/mL NT-Pro-B Natriuret Pep 130.0 (<=1800.0) pg/mL Total Protein 6.5 (6.4-8.2) g/dL Albumin 3.0 L (3.4-5.0) g/dL Globulin 3.5 g/dL Albumin/Globulin Ratio 0.9 Lipase 70.0 (16.0-77.0) U/L Urine Color (YELLOW) Urine Clarity (CLEAR) Urine pH (5.0-9.0) Ur Specific [place] (1.005-1.025) Urine Protein (NEG/TRACE) mg/dL Urine Glucose (UA) (NEGATIVE) mg/dL Urine Ketones (NEGATIVE) mg/dL Urine Occult Blood (NEGATIVE) Urine Nitrite (NEGATIVE) Urine Bilirubin (NEGATIVE) Urine Urobilinogen (0.2-1.0) EU/dL Ur Leukocyte Esterase (NEGATIVE) Urine RBC (0-2) #/HPF Urine WBC (NONE SEEN) #/HPF Ur Squamous Epith Cells (NONE/RARE) #/LPF Urine Crystals (None Seen) #/HPF Urine Bacteria (NONE SEEN) #/HPF Urine Casts (NONE SEEN) #/LPF Urine Mucus (NONE SEEN) Influenza Type A Ag Negative Influenza Type B Ag Negative RSV Antigen Not detected (NOT DETECTE) SARS-CoV-2 Ag (CV2AG) Negative (NEGATIVE) 06/19/24 Range/Units 16:49 WBC (4.0-11.0) 10^3/uL RBC (4.20-5.40) 10^6/uL Hgb (12.0-16.0) g/dL Hct (36.0-48.0) % MCV (81.0-99.0) fL MCH (26.7-34.0) pg MCHC (29.9-35.2) g/dL RDW (11.0-15.0) % Plt Count (150-450) 10^3/uL MPV (9.5-13.5) fL Neut % (Auto) (43.0-75.0) % Lymph % (Auto) (20.5-60.0) % [place] % (Auto) (1.7-12.0) % Eos % (Auto) (0.9-7.0) % Baso % (Auto) (0.2-2.0) % Neut # (Auto) (1.4-6.5) 10^3/uL Lymph # (Auto) (1.2-3.8) 10^3/uL [place] # (Auto) (0.3-0.8) 10^3/uL Eos # (Auto) (0.0-0.7) 10^3/uL Baso # (Auto) (0.0-0.1) 10^3/uL Abs Immat Gran (auto) (0.00-0.03) 10^3/uL Imm/Tot Granulo (auto) (0.0-0.5) % PT (9.0-11.6) sec INR VBG pH (7.330-7.430) VBG pCO2 (40.0-52.0) mmHg Sodium (136-145) mmol/L Potassium (3.5-5.1) mmol/L Chloride (98-107) mmol/L Carbon Dioxide (21.0-32.0) mmol/L Anion Gap BUN (7.0-18.0) mg/dL Creatinine (0.55-1.02) mg/dL Est GFR ( Amer) (>=60 mL/min/1.73m^2) Est GFR (Non-Af Amer) (>=60 mL/min/1.73m^2) BUN/Creatinine Ratio Glucose (74-106) mg/dL Calcium (8.5-10.1) mg/dL Total Bilirubin (0.2-1.0) mg/dL AST (15-37) U/L ALT (14-59) U/L Alkaline Phosphatase (46-116) U/L Troponin I High Sens (4.0-51.3) pg/mL NT-Pro-B Natriuret Pep (<=1800.0) pg/mL Total Protein (6.4-8.2) g/dL Albumin (3.4-5.0) g/dL Globulin g/dL Albumin/Globulin Ratio Lipase (16.0-77.0) U/L Urine Color Lt. yellow (YELLOW) Urine Clarity Clear (CLEAR) Urine pH 7.5 (5.0-9.0) Ur Specific [place] 1.010 (1.005-1.025) Urine Protein Negative (NEG/TRACE) mg/dL Urine Glucose (UA) Negative (NEGATIVE) mg/dL Urine Ketones Negative (NEGATIVE) mg/dL Urine Occult Blood Negative (NEGATIVE) Urine Nitrite Negative (NEGATIVE) Urine Bilirubin Negative (NEGATIVE) Urine Urobilinogen 0.2 (0.2-1.0) EU/dL Ur Leukocyte Esterase Negative (NEGATIVE) Urine RBC 0-2 (0-2) #/HPF Urine WBC None seen (NONE SEEN) #/HPF Ur Squamous Epith Cells Few A (NONE/RARE) #/LPF Urine Crystals None seen (None Seen) #/HPF Urine Bacteria Trace A (NONE SEEN) #/HPF Urine Casts None seen (NONE SEEN) #/LPF Urine Mucus None seen (NONE SEEN) Influenza Type A Ag Influenza Type B Ag RSV Antigen (NOT DETECTE) SARS-CoV-2 Ag (CV2AG) (NEGATIVE) ECG Data Attestation: I personally reviewed and interpreted this ECG as follows: (EKG interpretation. Normal sinus rhythm at 96 beats a minute. Artifact noted. Normal axis deviation. QTc of 404. No acute ST elevation.) Discharge Plan Discharge Chief Complaint: Chest Pain Clinical Impression: Nausea & vomiting, Shortness of breath, Chest tightness Patient Disposition: Home, Self-Care Time of Disposition Decision: 17:26 Condition: Fair Prescriptions / Home Meds: New promethazine 25 mg suppository 25 mg IN Q6H PRN (Reason: nausea and vomiting) Qty: 6 0RF ondansetron 4 mg tablet,disintegrating 4 mg PO Q4H PRN (Reason: nausea and vomiting) 3 Days Qty: 6 0RF No Action albuterol sulfate 90 mcg/actuation HFA aerosol inhaler 2 inh inhalation Q4H PRN (Reason: shortness of breath or wheezing) Qty: 8.5 0RF spironolactone 50 mg tablet 50 mg PO DAILY aspirin-dipyridamole 25-200 mg capsule, ER multiphase 12 hr 1 cap PO BID atorvastatin 40 mg tablet 40 mg PO DAILY diltiazem HCl 180 mg capsule,extended release 24hr 180 mg PO Q24H fluoxetine 20 mg capsule 20 mg PO DAILY albuterol sulfate 90 mcg/actuation HFA aerosol inhaler 2 inh inhalation Q4H PRN (Reason: shortness of breath or wheezing) Qty: 8.5 0RF Print Language: Green[place]ic Instructions: Chest Pain (ED), Acute Nausea and Vomiting (ED), Shortness of Breath (ED) Additional Instructions: Continue to increase fluids today and tomorrow, Gatorade, Powerade. Use soft diet tomorrow night if you are feeling better. Use the oral Zofran initially if you have additional nausea and vomiting. Use the Phenergan suppository as a backup to nausea vomiting if needed. HAPPY holidays, hopefully get to enjoy her [facility] Wednesday morning!!!!. Referrals: Cassy Young MD [Primary Care Provider] - 1 week
[2024-06-19 15:22] LABS: Basophils Absolute Auto 0.1 10^3/uL (0.0-0.1); Basophils Percent Auto 1.4 % (0.2-2.0); Eosinophils Absolute Auto 0.2 10^3/uL (0.0-0.7); Eosinophils Percent Auto 2.1 % (0.9-7.0); Hematocrit 32.5 % (36.0-48.0); Hemoglobin 10.6 g/dL (12.0-16.0); Immature Granulocytes Abs Auto 0.12 10^3/uL (0.00-0.03); Immature Granulocytes Pct Auto 1.3 % (0.0-0.5); Lymphocytes Absolute Auto 2.7 10^3/uL (1.2-3.8); Lymphocytes Percent Auto 29.7 % (20.5-60.0); Mean Corpuscular HGB Conc 32.6 g/dL (29.9-35.2); Mean Corpuscular Hemoglobin 30.5 pg (26.7-34.0); Mean Corpuscular Volume 93.4 fL (81.0-99.0); Mean Platelet Volume 10.2 fL (9.5-13.5); Monocytes Absolute Auto 0.6 10^3/uL (0.3-0.8); Monocytes Percent Auto 6.8 % (1.7-12.0); Neutrophils Absolute Auto 5.3 10^3/uL (1.4-6.5); Neutrophils Percent Auto 58.7 % (43.0-75.0); Platelet Count 352 10^3/uL (150-450); Red Blood Count 3.48 10^6/uL (4.20-5.40); Red Cell Distribution Width 13.4 % (11.0-15.0); White Blood Count 9.1 10^3/uL (4.0-11.0)
[2024-06-19] MEDS: ASPIRIN 81 MG TAB.CHEW 162 MG PO (15:23)
[2024-06-19] MEDS: ONDANSETRON PF 4 MG/2 ML VIAL IV (15:23)
[2024-06-19 15:40] LABS: Alanine Aminotransferase 16 U/L (14-59); Albumin Globulin Ratio 0.9; Alkaline Phosphatase 58 U/L (46-116); Anion Gap 9.5; Aspartate Amino Transferase 15 U/L (15-37); BUN Creatinine Ratio 16.8; Bilirubin Total 0.2 mg/dL (0.2-1.0); Carbon Dioxide 30.1 mmol/L (21.0-32.0); Chloride 104 mmol/L (98-107); Estimated GFR (African America 45 (>=60 mL/min/1.73m^2); Estimated GFR (Non-African Ame 37 (>=60 mL/min/1.73m^2); Globulin 3.5 g/dL; Glucose 110 mg/dL (74-106); Potassium 3.6 mmol/L (3.5-5.1); Sodium 140 mmol/L (136-145); Total Protein 6.5 g/dL (6.4-8.2)
[2024-06-19 15:41] LABS: Influenza Virus A Antigen Negative; Influenza Virus B Antigen Negative; Internal Control Within Normal Limits; Respiratory Syncytial Virus Not Detected (NOT DETECTE); SARS-CoV-2 Ag NEGATIVE (NEGATIVE)
[2024-06-19 15:45] LABS: Troponin I High Sensitivity 8.2 pg/mL (4.0-51.3)
[2024-06-19 15:47] LABS: PCO2 VBG 40.9 mmHg (40.0-52.0); pH VBG 7.457 (7.330-7.430)
[2024-06-19 16:02] LABS: Prothrombin Time 9.8 sec (9.0-11.6)
[2024-06-19 16:03] LABS: INR <0.93
[2024-06-19] MEDS: IPRATROPIUM/ALBUTEROL SULFATE 3 ML AMPUL.NEB IH (16:16)
[2024-06-19 16:55] LABS: Bilirubin Urine NEGATIVE (NEGATIVE); Blood Urine NEGATIVE (NEGATIVE); Clarity Urine CLEAR (CLEAR); Color Urine LT. YELLOW (YELLOW); Glucose Urine UA NEGATIVE (NEGATIVE); Ketones Urine NEGATIVE (NEGATIVE); Leukocyte Esterase Urine NEGATIVE (NEGATIVE); Nitrite Urine NEGATIVE (NEGATIVE); Protein Urine NEGATIVE (NEG/TRACE); Urobilinogen Urine 0.2 EU/dL (0.2-1.0); pH Urine 7.5 (5.0-9.0)
[2024-06-19 17:04] LABS: Bacteria Urine TRACE #/HPF (NONE SEEN); Cast Seen? NONE SEEN #/LPF (NONE SEEN); Crystals Seen? None Seen #/HPF (None Seen); Mucus Urine NONE SEEN (NONE SEEN); RBC Urine 0-2 #/HPF (0-2); Squamous Epithelial Cell Urine FEW #/LPF (NONE/RARE); WBC Urine NONE SEEN #/HPF (NONE SEEN)
--- OUTSIDE RECORDS SUMMARY | 2024-06-19 17:41 | XMS_ITS | CCD ---
Author Organization [facility] Inform ion Partnership [facility] Care Team Providers Care Interventionist Name Role Phone JORDANA, DR ROBINSON Corbett Attending Unavailtahmina SILVEIRA, DR ROBINSON Corbett Consulting Unavailabl e JORDANA, DR ROBINSON Corbett Admitting Unavailtahmina e BRICE, DR CASSY Portillo Primary Care Unavailable DOROTEO HERNANDEZ Consulting Unavailable MONICA MCKEON Consulting Unavailable BABS, DR CASSY Portillo Attending Unavailable FABIOLA, DR ARACELI Escamilla Consulting Unavailable BABS, DR CASSY Portillo Primary Care Unavailable BABS, DR CASSY Portillo Admitting Unavailable BRICE, DR CASSY Portillo Consulting Unavailable BRICE, DR CASSY Portillo Attending Unavailable BRICE, DR CASSY Portillo Consulting Unavailable BRICE, DR CASSY Portillo Primary Care Unavailable BABS, DR CASSY Portillo Admitting Unavailable Cassy Brice Unavailable CASSY BRICE Referring Unavailable CASSY BRICE Primary Care Unavailable CASSY BRICE Referring Unavailable CASSY BRICE Primary Care Unavailable DIAZ SCHOFIELD Referring Unavailable DIAZ SCHOFIELD Primary Care Unavailable Allergies Allergy Classification Reported Allergen(s) Allergy Type Date of Onset Reaction(s) Facility (4 sources) Doxycycline; Translations: [DOXYCYCLINE] Drug Allergy 03-02-20 13 Hives [facility] Repository (7 sources) predniSONE; Translations: [PREDNISONE] Drug Allergy 03-02-20 13 [facility] Repository (3 sources) Antihistamines - Alkylamine; Translations: [ANTIHISTAMINES - ALKYLAMINE] Drug allergy (disorder) 03-02-20 13 [facility] Repository (3 sources) diphenhydrAMINE Drug Allergy [facility] Other (1 source) Antihistamines Allergy to substance 12-11-19 [facility] (1 source) Antihistamines Propensity to adverse reactions 10-07-19 18 heart races [facility] (1 source) Janet Stacy Cold/Flu/Sinus Allergy to substance 12-11-19 Comment:antihi stamines [facility] Medications Current Medications Medication Drug Class(es) Dates Sig (Normalized) Sig (Original) amoxicillin 875 mg / clavulanate 125 mg oral tablet (2 sources) Penicillin-class Antibacterial take 1 tablet by mouth every twelve hours Amoxicillin-Pot Clavulanate 875-125 MG 1 tablet Orally every 12 hrs Active 12 hr aspirin 25 mg / dipyridamole 200 mg extended release oral capsule (5 sources) Platelet Aggregation Inhibitor, Nonsteroidal Anti-inflammatory Drug Start: 10-06-2017 End: 10-15-2017 take 1 capsule by mouth twice daily Aspirin-Dipyridamo le (Aggrenox) 25-200 mg Capsule, Er Multiphase 12 Hr Active 1 CAP PO Twice daily October 15, 2017 12:00am atorvastatin 10 mg oral tablet (5 sources) HMG-CoA Reductase Inhibitor Start: 10-15-2017 take 10 mg by mouth once daily in the evening Atorvastatin Active 10 MG PO Every evening October 15, 2017 12:00am Start: 10-06-2017 End: 10-15-2017 take 40 mg by mouth once daily Atorvastatin Discontinu ed 40 MG PO Daily October 06, 2017 12:00am October 15, 2017 11:46am FLUoxetine 20 mg oral capsule (3 sources) Serotonin Reuptake Inhibitor Start: 10-29-2022 take 1 capsule by mouth every twenty-four hours FLUoxetine HCl 20 MG 1 capsule Orally Once a day for 30 days October, Active 120 actuat fluticasone propionate 0.22 mg/actuat metered dose inhaler (4 sources) Corticosteroid Start: 10-06-2017 take 1 puff(s) by inhalation twice daily Fluticasone Propionate (Flovent Hfa) 220 mcg/actuation Hfa Aerosol Inhaler Active 2 PUFF INHALATION Twice daily October 06, 2017 12:00am take 2 puff(s) by inhalation twi ce daily Flovent HFA 220 MCG/ACT 2 puffs Inhalation Twice a day Active hydroCHLOROthiazide 12.5 mg oral capsule (4 sources) Thiazide Diuretic Start: 10-06-2017 take 12.5 mg by mouth once daily Hydrochlorothiazide Active 12.5 MG PO Daily October 06, 2017 12:00am ipratropium bromide 0.021 mg/actuat metered dose nasal spray (3 sources) Anticholinergic Start: 10-29-2022 take 2 spray(s) nasal route twice daily Ipratropium Severy 0.03 % 2 sprays in each nostril Nasally Twice a day for 30 days October, Active spironolactone 25 mg oral tablet (1 source) Aldosterone Antagonist Start: 10-15-2017 take 25 mg by mouth once daily in the morning Spironolactone Active 25 MG PO Every morning October 15, 2017 12:00am Completed/Discontinued Medications Medication Drug Class(es) Dates Sig (Normalized) Sig (Original) acetaminophen 325 mg / HYDROcodone bitartrate 5 mg oral tablet (1 source) Opioid Agonist Start: 10-20-2017 End: 10-27-2017 take 1 tablet by mouth every four to six hours Hydrocodone-Acetam inophen ([facility]) 5-325 mg tablet Discontinued 1 - 2 TAB PO EVERY 4-6 HOURS 50 7 October 20, 2017 October 27, 2017 12:01am 24 hr dilTIAZem hydrochloride 180 mg extended release oral capsule (4 sources) Calcium Channel Talon Start: 10-06-2017 End: 10-01-2023 take 1 capsule by mouth once daily in the morning Diltiazem Hcl Discontinued 1 CAP PO Every morning October 06, 2017 12:00am October 01, 2023 11:02am take 1 capsule by mouth once tamika ly Diltiazem CD 180 MG 1 capsule Orally Once a day Active ferrous sulfate 325 mg oral tablet (4 sources) Start: 10-06-2017 End: 10-15-2017 take 1 tablet by mouth once daily Ferrous Sulfate Discontinued 1 TAB PO Daily October 06, 2017 12:00am October 15, 2017 11:43am take 1 tablet by mouth once latha y Ferrous Sulfate 325 (65 Fe) MG 1 tablet Orally Once a day Not-Taking take 1 tablet by mouth once latha y Ferrous Sulfate 325 (65 Fe) MG 1 tablet Orally Once a day Active Problems Active Problems Problem Classification Problem Date Documented Date Episodic/Chronic Abdominal pain (1 source) Unspecified abdominal pain; Translations: [UNSPECIFIED ABDOMINAL PAIN] Onset: 06-09-2022 Episodic Anxiety disorders (5 sources) Anxiety; Translations: [Anxiety disorder, unspecified] Chronic Cancer of breast (1 source) Malignant tumor of breast ; Translations: [Malignant neoplasm of unspecified site of unspecified female breast] 10-20-2017 Chronic Cancer of breast (1 source) Personal history of malignant neoplasm of breast; Translations: [PERS HX MALIGNANT NEOPLASM BREAST] Onset: 06-09-2022 Episodic Chronic obstructive pulmonary disease and bronchiectasis (4 sources) Chronic obstructive pulmonary disease, unspecified; Translations: [Acute exacerbation of chronic obstructive airways disease] Onset: 06-09-2022 Chronic Chronic obstructive pulmonary disease and bronchiectasis (3 sources) Bronchitis; Translations: [Bronchitis, not specified as acute or chronic] Onset: 10-07-2023 10-01-2023 Episodic Disorders of lipid metabolism (5 sources) Pure hypercholesterolemia, unspecified; Translations: [Mixed hyperlipidemia] Onset: 11-14-2021 Chronic Essential hypertension (1 source) Essential (primary) hypertension; Translations: [ESSENTIAL PRIMARY HYPERTENSION] Onset: 06-09-2022 Chronic Nausea and vomiting (3 sources) Nausea with vomiting, unspecified; Translations: [NAUSEA WITH VOMITING UNSPECIFIED] Onset: 06-06-2022 Episodic Noninfectious gastroenteritis (1 source) Noninfective gastroenteritis and colitis, unspecified; Translations: [NONINFECTIVE GE AND COLITIS UNS] Onset: 06-09-2022 Episodic Nonspecific chest pain (1 source) Chest pain; Translations: [Chest pain, unspecified] 04-16-2019 Episodic Other connective tissue disease (4 sources) Pain in right foot; Translations: [PAIN IN RIGHT FOOT] Onset: 06-11-2022 Episodic Other diseases of bladder and urethra (3 sources) Overactive bladder; Translations: [Overactive bladder] Chronic Other diseases of bladder and urethra (1 source) Overactive bladder Chronic Other lower respiratory disease (1 source) Personal history of pneumonia (recurrent); Translations: [PERSONAL HX OF PNEUMONIA RECURRENT] Onset: 06-09-2022 Episodic Other lower respiratory disease (3 sources) Lung field abnormal; Translations: [Other nonspecific abnormal finding of lung field] Episodic Other nervous system disorders (3 sources) Chronic pain; Translations: [Other chronic pain] Chronic Other nervous system disorders (2 sources) Other chronic pain Chronic Other non-traumatic joint disorders (1 source) Pain in right knee Episodic Other screening for suspected conditions (not mental disorders or infectious disease) (4 sources) Patient encounter status; Translations: [Encounter for screening mammogram for malignant neoplasm of breast] Onset: 10-20-2023 10-01-2023 Episodic Other upper respiratory disease (1 source) Other specified disorders of nose and nasal sinuses Episodic Residual codes; unclassified (1 source) Acquired absence of both cervix and uterus; Translations: [ACQUIRED ABSENCE BOTH CERVIX AND UTERUS] Onset: 06-09-2022 Episodic Residual codes; unclassified (1 source) History of right mastectomy; Translations: [Acquired absence of right breast and nipple] 10-20-2017 Episodic Substance-related disorders (1 source) Nicotine dependence, cigarettes, uncomplicated; Translations: [NICOTINE DEPEND CIGARETTES UNCOMP] Onset: 06-09-2022 Chronic Syncope (1 source) Near syncope; Translations: [Syncope and collapse] 04-15-2019 Episodic Past or Other Problems Problem Classification Problem Date Documented Da te Episodic/Chronic Deficiency and other anemia (1 source) Anemia, unspecified; Translations: [ANEMIA UNSPECIFIED] Onset: 11-19-2021 Episodic Results Test Name Value Interpretation Reference Range 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 Computer aided detection was utilized. FINDINGS: There are scattered areas of fibroglandular density. There are no suspicious masses, calcifications, or areas of architectural distortions. IMPRESSION: No mammographic evidence of malignancy. The patient is post right mastectomy. BI-RADS: BI-RADS 1 - Negative Recommendation: Routine screening mammogram in 1 year A letter of notification will be sent to the patient regarding the results. Finalized by Joshua Dangelo MD on 10/20/2023 11:26 AM 1 b MAMM 1 YR Normal [facility] XR CHEST 2 VWSon 10-07-2023 XR CHEST 2 VWS XR CHEST 2 VWS Clinical history: Bronchitis. Chest pain and shortness of breath. Comparisons: 02/02/2018 through 03/26/2023. Findings: 2 views of the chest obtained heart size and pulmonary vasculature appear within normal limits. There is no pulmonary parenchymal consolidation. No pleural effusion nor pneumothorax. Prominent epicardial fat pads again seen. Changes of right chest wall surgery again noted. IMPRESSION: No evidence for acute cardiopulmonary disease. Finalized by Betito Casas MD on 10/07/2023 11:23 AM Normal [facility] Basophils Auto (Bld) [#/Vol] on 09-22-2023 Basophils (Bld) [#/Vol] 0.1 10 3/uL 0.0-0.1 [facility] Basophils/100 WBC Auto (Bld) on 09-22-2023 Basophils/100 WBC (Bld) 1.5 % 0.2-2.0 [facility] Eosinophils/100 WBC Auto (Bl d)on 09-22-2023 Eosinophils/100 WBC (Bld) 4.1 % 0.9-7.0 [facility] Erythrocyte distribution wid th Auto (RBC) [Ratio]on 09-22-2023 Erythrocyte distribution width (RBC) [Ratio] 13.7 % 11.0-15.0 [facility] Estimated glomerular filtrat ion rate (GFR) non- Americanon 09-22-2023 GFR/1.73 sq M.predicted among non-blacks MDRD (S/P/Bld) [Vol rate/Area] 44 mL/min/{1.73_m2} >=60 [facility] Hematocrit Auto (Bld) [Volum e fraction]on 09-22-2023 Hematocrit (Bld) [Volume fraction] 33.8 % 36.0-48.0 [facility] Hemoglobin [Mass/volume] in Bloodon 09-22-2023 Hemoglobin (Bld) [Mass/Vol] 10.8 g/dL 12.0-16.0 [facility] Laboratory - Chemistry and C hemistry - challengeon 09-22-2023 Calcium [Mass/Vol] 9.0 mg/dL 8.5-10.1 [facility] Chloride [Moles/Vol] 108 mmol/L 98-107 [facility] CO2 [Moles/Vol] 28.2 mmol/L 21.0-32.0 [facility] Creatinine [Mass/Vol] 1.19 mg/dL 0.55-1.02 [facility] GFR/1.73 sq M.predicted MDRD (S/P/Bld) [Vol rate/Area] 53 mL/min/{1.73_m2} >=60 [facility] Glucose [Mass/Vol] 90 mg/dL 74-106 [facility] Potassium [Moles/Vol] 3.8 mmol/L 3.5-5.1 [facility] Sodium [Moles/Vol] 143 mmol/L 136-145 [facility] Urea nitrogen [Mass/Vol] 22.0 mg/dL 7.0-18.0 [facility] Urea nitrogen/Creatinine [Mass ratio] 18.5 mg/mg [facility] Laboratory - Hematology and Cell countson 09-22-2023 Immature granulocytes/100 WBC (Bld) 0.1 % 0.0-0.5 [facility] Laboratory - Microbiology an d Antimicrobial susceptibilityon 09-22-2023 SARS-CoV-2 (COVID-19) RNA NANCI+probe Ql (Unsp spec) Negative NEGATIVE [facility] Comment on above: This test has not be en FDA cleared or approved, but has beenauthorized by the FDA under an Emergency Use Authorization(EUA) for use by authorized laboratories certified underIA that meet the requirements to perform moderate or highcomplexity testing. This test has been authorized only forthe detection of proteins from SARS-CoV-2, not for any otherviruses or pathogens. The emergency use of this test isauthorized for the duration of the declaration thatcircumstances exist justifying the authorization ofemergency use of in vitro diagnostic tests for detectionand/or diagnosis of Covid-19 under section 564(b)(1) of theAct, 21 U.S.C. 360bbb-3(b)(1), unless the declaration isterminated or authorization is revoked sooner. Leukocytes [#/volume] correc dima for nucleated erythrocytes in Blood by Automated counon 09-22-2023 WBC corrected for nucl RBC Auto (Bld) [#/Vol] 9.4 10 3/uL 4.0-11.0 [facility] Lymphocytes Auto (Bld) [#/Vo l]on 09-22-2023 Lymphocytes (Bld) [#/Vol] 3.7 10 3/uL 1.2-3.8 [facility] Lymphocytes/100 WBC Auto (Bl d)on 09-22-2023 Lymphocytes/100 WBC (Bld) 39.0 % 20.5-60.0 [facility] MCH Auto (RBC) [Entitic mass ]on 09-22-2023 MCH (RBC) [Entitic mass] 30.3 pg 26.7-34.0 [facility] MCHC Auto (RBC) [Mass/Vol]on 09-22-2023 MCHC (RBC) [Mass/Vol] 32.0 g/dL 29.9-35.2 [facility] MCV Auto (RBC) [Entitic vol] on 09-22-2023 MCV (RBC) [Entitic vol] 94.7 fL 81.0-99.0 [facility] Monocytes Auto (Bld) [#/Vol] on 09-22-2023 Monocytes (Bld) [#/Vol] 0.6 10 3/uL 0.3-0.8 [facility] Monocytes/100 WBC Auto (Bld) on 09-22-2023 Monocytes/100 WBC (Bld) 6.5 % 1.7-12.0 [facility] Neutrophils Auto (Bld) [#/Vo l]on 09-22-2023 Neutrophils (Bld) [#/Vol] 4.6 10 3/uL 1.4-6.5 [facility] Neutrophils/100 WBC Auto (Bl d)on 09-22-2023 Neutrophils/100 WBC (Bld) 48.8 % 43.0-75.0 [facility] No Panel Informationon 09-21 Bedside Influenza Type A Antigen Negative [facility] Comment on above: Negative for Flu A p rotein antigen. Infection due to Flu Acannot be ruled out. Flu A antigen in the sample may bebelow the detection limit of the test. Bedside Influenza Type B Antigen Negative [facility] Comment on above: Negative for Flu B p rotein antigen. Infection due to Flu Bcannot be ruled out. Flu B antigen in the sample may bebelow the detection limit of the test. Eosinophils # (Auto) 0.4 10 3/uL 0.0-0.7 [facility] Immature Granulocyte # (Auto) 0.01 10 3/uL 0.00-0.03 [facility] Troponin I High Sensitivity 7.7 pg/mL 4.0-51.3 [facility] Comment on above: CUT-OFF POINTS HAVE BEEN ESTABLISHED BASED ON THE FOURTHUNIVERSAL DEFINITION OF MYOCARDIAL INFARCTION. THE UPPERREFERENCE LIMIT (URL) OF TROPONIN, DEFINED THE 99THPERCENTILE OF cTnI DISTRIBUTION IN A REFERENCE POPULATION,HAS BEEN CONFIRMED THE DECISION THRESHOLD FOR MIDIAGNOSIS.99TH PERCENTILE = 51.4 PG/MLNOTE: HIGH-SENSITIVITY TROPONIN ASSAY IS NOT INTENDED TO BEUSED IN ISOLATION BUT SHOULD BE INTERPRETED IN CONJUNCTIONWITH OTHER DIAGNOSTIC AND CLINICAL INFORMATION. Platelet mean volume Auto (B ld) [Entitic vol]on 09-22-2023 Platelet mean volume (Bld) [Entitic vol] 10.4 fL 9.5-13.5 [facility] Platelets Auto (Bld) [#/Vol] on 09-22-2023 Platelets (Bld) [#/Vol] 318 10 3/uL 150-450 [facility] RBC Auto (Bld) [#/Vol]on RBC (Bld) [#/Vol] 3.57 10 6/uL 4.20-5.40 [facility] Serum or plasma anion gap de terminationon 09-22-2023 Anion gap [Moles/Vol] 10.6 mmol/L [facility] CBC AUTO DIFFon 06-06-2022 BASO # 0.1 103/ul Normal 0.0-0.1 [facility] Comment on above: Performed By: #### C BC #### [facility] [address] [address] [address] Lulú Hernandez Basophils/100 WBC (Bld) 0.5 % Normal 0.2-2.0 [facility] Comment on above: Performed By: #### C BC #### [facility] [address] [address] [address] Lulú Hernandez EO # 0.2 103/ul Normal 0.0-0.7 [facility] Comment on above: Performed By: #### C BC #### [facility] [address] [address] [address] Lulú Hernandez Eosinophils/100 WBC (Bld) 1.6 % Normal 0.9-7.0 [facility] Comment on above: Performed By: #### C BC #### [facility] [address] [place] [address] Dr. Lulú Hernandez Erythrocyte distribution width (RBC) [Ratio] 13.7 % Normal 11.0-15.0 [facility] Comment on above: Performed By: #### C BC #### [facility] [address] [place] [address] Dr. Lulú Hernandez Hematocrit (Bld) [Volume fraction] 36.7 % Normal 36.0-48.0 [facility] Comment on above: Performed By: #### C BC #### [facility] [address] [place] [address] Dr. Lulú Hernandez Hemoglobin (Bld) [Mass/Vol] 12.1 g/dL Normal 12.0-16.0 [facility] Comment on above: Performed By: #### C BC #### [facility] [address] [place] [address] Dr. Lulú Hernandez IG # 0.06 10e3/ul Critically high 0.00-0.03 [facility] Comment on above: Performed By: #### C BC #### [facility] [address] [place] [address] Dr. Lulú Hernandez IG % 0.6 % Critically high 0.0-0.5 [facility] Comment on above: Performed By: #### C BC #### [facility] [address] [place] [address] Dr. Lulú Hernandez LYMPH # 1.8 103/ul Normal 1.2-3.8 [facility] Comment on above: Performed By: #### C BC #### [facility] [address] [place] [address] Dr. Lulú Hernandez Lymphocytes/100 WBC (Bld) 17.6 % Critically low 20.5-60.0 [facility] Comment on above: Performed By: #### C BC #### [facility] [address] [place] [address] Dr. Lulú Hernandez MANUAL DIFF REQ NO Normal [facility] Comment on above: Performed By: #### C BC #### [facility] [address] [place] [address] Dr. Lulú Hernandez MCH (RBC) [Entitic mass] 29.7 pg Normal 26.7-34.0 [facility] Comment on above: Performed By: #### C BC #### [facility] [address] [place] [address] Dr. Lulú Hernandez MCHC (RBC) [Mass/Vol] 33.0 g/dL Normal 29.9-35.2 [facility] Comment on above: Performed By: #### C BC #### [facility] [address] [place] [address] Dr. Lulú Hernandez MCV (RBC) [Entitic vol] 90.2 fL Normal 81.0-99.0 [facility] Comment on above: Performed By: #### C BC #### [facility] [address] [place] [address] Dr. Lulú Hernandez MONO # 0.6 103/ul Normal 0.3-0.8 [facility] Comment on above: Performed By: #### C BC #### [facility] [address] [place] [address] Dr. Lulú Hernandez Monocytes/100 WBC (Bld) 5.9 % Normal 1.7-12.0 [facility] Comment on above: Performed By: #### C BC #### [facility] [address] [place] [address] Dr. Lulú Hernandez NEUT # 7.6 103/ul Critically high 1.4-6.5 [facility] Comment on above: Performed By: #### C BC #### [facility] [address] [place] [address] Dr. Lulú Hernandez Neutrophils/100 WBC (Bld) 73.8 % Normal 43.0-75.0 [facility] Comment on above: Performed By: #### C BC #### [facility] [address], [place] [address] Dr. Lulú Hernandez Platelet mean volume (Bld) [Entitic vol] 10.4 fL Normal 9.5-13.5 [facility] Comment on above: Performed By: #### C BC #### [facility] [address] [address] [address] Lulú Hernandez PLT 343 103/ul Normal 150-450 [facility] Comment on above: Performed By: #### C BC #### [facility] [id number] Lulú Hernandez RBC 4.07 106/ul Critically low 4.20-5.40 [facility] Comment on above: Performed By: #### C BC #### [facility] [address] [place] [address] Dr. Lulú Hernandez WBC 10.2 103/ul Normal 4.0-11.0 [facility] Comment on above: Performed By: #### C BC #### [facility] [address] [place] [address] Dr. Lulú Hernandez CT ABD/PELV W CONon 06-06-20 CT ABD/PELV W CON EXAM: CT ABD/PELV W CON REASON FOR EXAM: Female, 76 years, GENERALIZED ABDOMINAL PAIN. TECHNIQUE: Computed tomography of the abdomen and pelvis is performed in the axial projection from the lung bases to the pubic symphysis. Sagittal and coronal reconstructed images are performed. Dose reduction techniques were achieved by using automated exposure control and/or adjustment of mA and/or KVP according to patient size and/or use of iterative reconstruction technique. A total of 100 mL Omnipaque 300 IV contrast was given. Study was performed without oral contrast. COMPARISON: 09/07/2017 FINDINGS: Lung bases: The lung bases are clear. There is no pleural effusion. The visualized portions of the heart are unremarkable. Liver: The liver is normal. Gallbladder: The gallbladder is normal. Spleen: The spleen is normal. Pancreas: The pancreas is normal. Adrenal glands: The adrenal glands are normal bilaterally. Right kidney: The kidney is normal in size. There is a small cyst at the inferior pole of the right kidney. There is no renal calculus or hydronephrosis. Left kidney: The kidney is normal in size. There is a small cyst at the mid to superior pole of the left kidney. There is no renal calculus or hydronephrosis. Stomach: There is a small hiatal hernia. Small bowel: The small bowel is abnormal. There are multiple loops of small bowel with thickened fine, greatest in the right abdomen. There is moderate fluid distention throughout the small bowel, without discrete transition point to suggest obstruction. There is some mucosal enhancement of the small bowel loops. Large bowel: There is fluid within the colon suggesting diarrhea stool. There is mild mesenteric edema. Appendix: The appendix is not visualized. No right lower quadrant inflammatory changes are seen to suggest acute appendicitis. Aorta: There are mild atherosclerotic calcifications of the abdominal aorta. IVC: The IVC is normal. Retroperitoneum: Normal retroperitoneum. Bladder: The bladder is normal. Pelvic organs: The uterus is absent, consistent with hysterectomy. Abdominal wall: There are postoperative changes to the anterior abdominal wall. Osseous structures: Normal bony structures. IMPRESSION: There is an abnormal appearance to the small bowel, with multiple loops of small bowel demonstrating thickened fine, greatest within the right abdomen. There is fluid within the colon suggesting liquid stool. Findings may represent infectious or inflammatory enteritis. Ischemia is a consideration, but no significant filling defect is seen within the visualized mesenteric vessels, making this less likely. Additional nonacute findings, as described above. Electronically authenticated by: DOROTEO HERNANDEZ Date: 2022-06-06 17:52 Normal [facility] INFLUENZA A AND B AGon 06-06 [facility] SEE BELOW Normal [facility] Comment on above: Result Comment: Nega tive for Flu A protein angiten. Infection due to Flu A cannot be ruled out. Flu A angiten in the sample may be below the detection limit of the test. Performed By: #### I NFLUAB #### [facility] [address] [place] [address] Dr. Lulú Hernandez [facility] SEE BELOW Normal [facility] Comment on above: Result Comment: Nega tive for Flu B protein antigen. Infection due to Flu B cannot be ruled out. Flu B antigen in the sample may be below the detection limit of the test. Performed By: #### I NFLUAB #### [facility] [address] [address] [address] Lulú Hernandez INFLUENZA A AG Negative Normal NEGATIVE SEE COMMENT [facility] Comment on above: Performed By: #### I NFLUAB #### [facility] [address] [place] [address] Dr. Lulú Hernandez INFLUENZA B AG Negative Normal NEGATIVE SEE COMMENT [facility] Comment on above: Performed By: #### I NFLUAB #### [facility] [address] [place] [address] Dr. Lulú Hernandez INTERNAL CONTROLS Within Normal Limits Normal Wi thin Normal Limits [facility] Comment on above: Performed By: #### I NFLUAB #### [facility] [address] [place] [address] Dr. Lulú Hernandez LIPASEon 06-06-2022 Lipase [Catalytic activity/Vol] 162.0 U/L Normal 73.0-393.0 [facility] Comment on above: Performed By: #### L IPA, BMP #### [facility] [address] [place] [address] Dr. Lulú Hernandez PROF CHEM 8 (BAS METB)on Anion gap [Moles/Vol] 11.8 mmol/L Normal [facility] Comment on above: Performed By: #### L IPA, BMP #### [facility] [address] [place] [address] Dr. Lulú Hernandez Calcium [Mass/Vol] 9.4 mg/dL Normal 8.5-10.1 [facility] Comment on above: Performed By: #### L IPA, BMP #### [facility] [address] [place] [address] Dr. Lulú Hernandez Chloride [Moles/Vol] 102 mmol/L Normal 98-107 [facility] Comment on above: Performed By: #### L IPA, BMP #### [facility] [address] [place] [address] Dr. Lulú Hernandez CO2 [Moles/Vol] 28.0 mmol/L Normal 21.0-32.0 [facility] Comment on above: Performed By: #### L IPA, BMP #### [facility] [address] [address] [address] Lulú Hernandez Creatinine [Mass/Vol] 1.63 mg/dL Critically high 0.55-1.02 [facility] Comment on above: Performed By: #### L IPA, BMP #### [facility] [address] [address] [address] Lulú Hernandez EGFR-AF STATELESS 37 mL/min/1.73m2 Critically low >=60 [facility] Comment on above: Performed By: #### L IPA, BMP #### [facility] [address] [address] [address] Lulú Hernandez EGFR-NON AF STATELESS 31 mL/min/1.73m2 Critically low >=60 [facility] Comment on above: Performed By: #### L IPA, BMP #### [facility] [address] [address] [address] Lulú Hernandez Glucose [Mass/Vol] 100 mg/dL Normal 74-106 [facility] Comment on above: Performed By: #### L IPA, BMP #### [facility] [address] [address] [address] Lulú Hernandez Potassium [Moles/Vol] 3.8 mmol/L Normal 3.5-5.1 [facility] Comment on above: Performed By: #### L IPA, BMP #### [facility] [address] [address] [address] Lulú Hernandez Sodium [Moles/Vol] 138 mmol/L Normal 136-145 [facility] Comment on above: Performed By: #### L IPA, BMP #### [facility] [address] [address] [address] Lulú Hernandez Urea nitrogen [Mass/Vol] 26.0 mg/dL Critically high 7.0-18.0 [facility] Comment on above: Performed By: #### L IPA, BMP #### [facility] [address] [address] [address] Lulú Hernandez Urea nitrogen/Creatinine [Mass ratio] 16.0 mg/mg Normal [facility] Comment on above: Performed By: #### L IPA, BMP #### [facility] [address] [place] [address] Dr. Lulú Hernandez XR CHEST 1 Von 06-06-2022 XR CHEST 1 V EXAM: XR CHEST 1 V INDICATION: SHORTNESS OF BREATH. COMPARISON: Chest radiograph 08/28/2018. TECHNIQUE: Single frontal view of the chest FINDINGS: Normal cardiomediastinal contours. Clear lungs. No pleural effusion or pneumothorax. No acute osseous abnormality. IMPRESSION: No acute cardiopulmonary process. Electronically authenticated by: MONICA MCKEON Date: 2022-06-06 14:43 Normal [facility] CBC AUTO DIFFon 11-14-2021 BASO # 0.1 103/ul Normal 0.0-0.1 [facility] Comment on above: Performed By: #### C BC #### [facility] [address] [place] [address] Dr. Lulú Hernandez Basophils/100 WBC (Bld) 1.5 % Normal 0.2-2.0 [facility] Comment on above: Performed By: #### C BC #### [facility] [address] [place] [address] Dr. Lulú Hernandez EO # 0.2 103/ul Normal 0.0-0.7 [facility] Comment on above: Performed By: #### C BC #### [facility] [address] [place] [address] Dr. Lulú Hernandez Eosinophils/100 WBC (Bld) 2.4 % Normal 0.9-7.0 [facility] Comment on above: Performed By: #### C BC #### [facility] [address] [place] [address] Dr. Lulú Hernandez Erythrocyte distribution width (RBC) [Ratio] 13.4 % Normal 11.0-15.0 [facility] Comment on above: Performed By: #### C BC #### [facility] [address] [place] [address] Dr. Lulú Hernandez Hematocrit (Bld) [Volume fraction] 37.9 % Normal 36.0-48.0 [facility] Comment on above: Performed By: #### C BC #### [facility] [address] [place] [address] Dr. Lulú Hernandez Hemoglobin (Bld) [Mass/Vol] 12.0 g/dL Normal 12.0-16.0 [facility] Comment on above: Performed By: #### C BC #### [facility] [address] [place] [address] Dr. Lulú Hernandez IG # 0.03 10e3/ul Normal 0.00-0.03 [facility] Comment on above: Performed By: #### C BC #### [facility] [address] [place] [address] Dr. Lulú Hernandez IG % 0.4 % Normal 0.0-0.5 [facility] Comment on above: Performed By: #### C BC #### [facility] [address] [place] [address] Dr. Lulú Hernandez LYMPH # 2.9 103/ul Normal 1.2-3.8 [facility] Comment on above: Performed By: #### C BC #### [facility] [address] [place] [address] Dr. Lulú Hernandez Lymphocytes/100 WBC (Bld) 35.9 % Normal 20.5-60.0 [facility] Comment on above: Performed By: #### C BC #### [facility] [address] [place] [address] Dr. Lulú Hernandez MANUAL DIFF REQ NO Normal [facility] Comment on above: Performed By: #### C BC #### [facility] [address] [place] [address] Dr. Lulú Hernandez MCH (RBC) [Entitic mass] 29.7 pg Normal 26.7-34.0 [facility] Comment on above: Performed By: #### C BC #### [facility] [address] [place] [address] Dr. Lulú Hernandez MCHC (RBC) [Mass/Vol] 31.7 g/dL Normal 29.9-35.2 [facility] Comment on above: Performed By: #### C BC #### [facility] [address] [place] [address] Dr. Lulú Hernandez MCV (RBC) [Entitic vol] 93.8 fL Normal 81.0-99.0 [facility] Comment on above: Performed By: #### C BC #### [facility] [address] [place] [address] Dr. Lulú Hernandez MONO # 0.6 103/ul Normal 0.3-0.8 [facility] Comment on above: Performed By: #### C BC #### [facility] [address] [place] [address] Dr. Lulú Hernandez Monocytes/100 WBC (Bld) 7.0 % Normal 1.7-12.0 [facility] Comment on above: Performed By: #### C BC #### [facility] [address] [place] [address] Dr. Lulú Hernandez NEUT # 4.3 103/ul Normal 1.4-6.5 [facility] Comment on above: Performed By: #### C BC #### [facility] [address] [place] [address] Dr. Lulú Hernandez Neutrophils/100 WBC (Bld) 52.8 % Normal 43.0-75.0 [facility] Comment on above: Performed By: #### C BC #### [facility] [address] [place] [address] Dr. Lulú Hernandez Platelet mean volume (Bld) [Entitic vol] 10.5 fL Normal 9.5-13.5 [facility] Comment on above: Performed By: #### C BC #### [facility] [address] [place] [address] Dr. Lulú Hernandez PLT 357 103/ul Normal 150-450 [facility] Comment on above: Performed By: #### C BC #### [facility] [address] [place] [address] Dr. Lulú Hernandez RBC 4.04 106/ul Critically low 4.20-5.40 [facility] Comment on above: Performed By: #### C BC #### [facility] [address] [place] [address] Dr. Lulú Hernandez WBC 8.1 103/ul Normal 4.0-11.0 [facility] Comment on above: Performed By: #### C BC #### [facility] [address] [address] [address] Lulú Hernandez LIPID PROFILEon 11-14-2021 CHOL-HDL RATIO NORM SEE BELOW Normal [facility] Comment on above: Result Comment: 3.3 - 4.4 LOW RISK 4.4 - 7.1 AVERAGE RISK 7.1 - 11.0 MODERATE RISK >11.0 HIGH RISK Performed By: #### C MP, LIPID #### [facility] [address] [address] [address] Lulú Hernandez Cholesterol [Mass/Vol] 202 mg/dL Critically high <=200 [facility] Comment on above: Performed By: #### C MP, LIPID #### [facility] [address] [address] [address] Lulú Hernandez Cholesterol in HDL [Mass/Vol] 81 mg/dL Critically high 40-60 [facility] Comment on above: Performed By: #### C MP, LIPID #### [facility] [address] [address] [address] Lulú Hernandez Cholesterol in LDL [Mass/Vol] 97.2 mg/dL Normal [facility] Comment on above: Performed By: #### C MP, LIPID #### [facility] [address] [address] [address] Lulú Hernandez Cholesterol.total/Cho lesterol in HDL [Mass ratio] 2.5 {ratio} Normal [facility] Comment on above: Performed By: #### C MP, LIPID #### [facility] [address] [address] [address] Lulú Hernandez HDL NORMAL > or = 60 mg/dl - LO W CARDIOVASCULAR RISK <40 mg/dl - HIGH CARDIOVASCULAR RISK Normal [facility] Comment on above: Performed By: #### C MP, LIPID #### [facility] [address] [address] [address] Lulú Hernandez LDL CALC NORMAL SEE BELOW Normal [facility] Comment on above: Result Comment: <100 mg/dl OPTIMAL 100 - 129 mg/dl NEAR OR ABOVE OPTIMAL 130 - 159 mg/dl BORDERLINE HIGH 160 - 189 mg/dl HIGH >190 mg/dl VERY HIGH Performed By: #### C MP, LIPID #### [facility] [address] [place] [address] Dr. Lulú Hernandez Triglyceride [Mass/Vol] 119 mg/dL Normal <=150 [facility] Comment on above: Performed By: #### C MP, LIPID #### [facility] [address] [place] [address] Dr. Lulú Hernandez VLDL CALC 23.8 mg/dL Normal [facility] Comment on above: Performed By: #### C MP, LIPID #### [facility] [address] [place] [address] Dr. Lulú Hernandez PROF 14(COMP METB)on 022 Albumin [Mass/Vol] 3.5 g/dL Normal 3.4-5.0 [facility] Comment on above: Performed By: #### C MP, LIPID #### [facility] [address] [place] [address] Dr. Lulú Hernandez Albumin/Globulin [Mass ratio] 0.9 {ratio} Normal [facility] Comment on above: Performed By: #### C MP, LIPID #### [facility] [address] [place] [address] Dr. Lulú Hernandez ALP [Catalytic activity/Vol] 77 U/L Normal 46-116 [facility] Comment on above: Performed By: #### C MP, LIPID #### [facility] [address] [place] [address] Dr. Lulú Hernandez ALT [Catalytic activity/Vol] U/L Critically low 14-59 [facility] Comment on above: Performed By: #### C MP, LIPID #### [facility] [address] [place] [address] Dr. Lulú Hernandez Anion gap [Moles/Vol] 12.9 mmol/L Normal [facility] Comment on above: Performed By: #### C MP, LIPID #### [facility] [address] [place] [address] Dr. Lulú Hernandez AST [Catalytic activity/Vol] 15 U/L Normal 15-37 [facility] Comment on above: Performed By: #### C MP, LIPID #### [facility] [address] [address] [address] Lulú Hernandez Bilirubin [Mass/Vol] 0.5 mg/dL Normal 0.2-1.0 [facility] Comment on above: Performed By: #### C MP, LIPID #### [facility] [address] [address] [address] Lulú Hernandez Calcium [Mass/Vol] 9.3 mg/dL Normal 8.5-10.1 [facility] Comment on above: Performed By: #### C MP, LIPID #### [facility] [address] [address] [address] Lulú Hernandez Chloride [Moles/Vol] 102 mmol/L Normal 98-107 [facility] Comment on above: Performed By: #### C MP, LIPID #### [facility] [address] [address] [address] Lulú Hernandez CO2 [Moles/Vol] 26.8 mmol/L Normal 21.0-32.0 [facility] Comment on above: Performed By: #### C MP, LIPID #### [facility] [address] [address] [address] Lulú Hernandez Creatinine [Mass/Vol] 1.24 mg/dL Critically high 0.55-1.02 [facility] Comment on above: Performed By: #### C MP, LIPID #### [facility] [address] [address] [address] Lulú Hernandez EGFR-AF STATELESS 51 mL/min/1.73m2 Critically low >=60 [facility] Comment on above: Performed By: #### C MP, LIPID #### [facility] [address] [address] [address] Lulú Hernandez EGFR-NON AF STATELESS 42 mL/min/1.73m2 Critically low >=60 [facility] Comment on above: Performed By: #### C MP, LIPID #### [facility] [address] [address] [address] Lulú Hernandez Globulin (S) [Mass/Vol] 4.0 g/dL Normal [facility] Comment on above: Performed By: #### C MP, LIPID #### [facility] [address] [address] [address] Lulú Hernandez Glucose [Mass/Vol] 93 mg/dL Normal 74-106 [facility] Comment on above: Performed By: #### C MP, LIPID #### [facility] [address] [address] [address] Lulú Hernandez Potassium [Moles/Vol] 3.7 mmol/L Normal 3.5-5.1 [facility] Comment on above: Performed By: #### C MP, LIPID #### [facility] [address] [place] [address] Dr. Lulú Hernandez Protein [Mass/Vol] 7.5 g/dL Normal 6.4-8.2 [facility] Comment on above: Performed By: #### C MP, LIPID #### [facility] [address] [place] [address] Dr. Lulú Hernandez Sodium [Moles/Vol] 138 mmol/L Normal 136-145 [facility] Comment on above: Performed By: #### C MP, LIPID #### [facility] [address] [place] [address] Dr. Lulú Hernandez Urea nitrogen [Mass/Vol] 19.0 mg/dL Critically high 7.0-18.0 [facility] Comment on above: Performed By: #### C MP, LIPID #### [facility] [address] [place] [address] Dr. Lulú Hernandez Urea nitrogen/Creatinine [Mass ratio] 15.3 mg/mg Normal [facility] Comment on above: Performed By: #### C MP, LIPID #### [facility] [address] [place] [address] Dr. Lulú Hernandez Vital Signs Date Time Vital Sign Value Performing Clinician Facility 10-01-2023 10:51040 Body height 165.1 cm [facility] 10-01-2023 10:[id number] Body mass index (BMI) [Ratio] 24.2 kg/m2 [facility] 10-01-2023 10:51-0400 Body weight 65.94 kg [facility] 10-01-2023 10:51-0400 Diastolic blood pressure 81 mm[Hg] [facility] 10-01-2023 10:51-0400 Heart rate 88 /min [facility] 10-01-2023 10:51-0400 SaO2% (BldA) [Mass fraction] 97 % [facility] 10-01-2023 10:51-0400 Systolic blood pressure 153 mm[Hg] [facility] 12-10-2022 10:45-0400 Body height 165.1 cm Cassy Brice Other [employer] [facility] [email or web address] Other 12-10-2022 10:45-0400 Body mass index (BMI) [Ratio] 22.3 kg/m2 Cassy Brice Other [facility] Other 12-10-2022 10:45-0400 Body weight 60.78 kg Cassy Brice Other [facility] Other 12-10-2022 10:45-0400 Diastolic blood pressure 78 mm[Hg] Cassy Brice Other [facility] Other 12-10-2022 10:45-0400 Systolic blood pressure 156 mm[Hg] Cassy Brice Other [facility] Other 10-27-2022 16:00-0400 Body height 165.1 cm Cassy Brice Other [facility] Other 10-27-2022 16:00-0400 Body mass index (BMI) [Ratio] 24.46 kg/m2 Cassy Brice Other [facility] Other 10-27-2022 16:00-0400 Body weight 66.68 kg Cassy Brice Other [facility] Other 10-27-2022 16:00-0400 Diastolic blood pressure 74 mm[Hg] Cassy Brice Other [facility] Other 10-27-2022 16:00-0400 SaO2% (BldA) [Mass fraction] 97 % Cassy Babs Other [facility] Other 10-27-2022 16:00-0400 Systolic blood pressure 122 mm[Hg] Cassy Brice Other [facility] Other Encounters Encounter Date Encounter Type Care Provider Facility Start: 10-20-2023 End: 10-21-2023 ambulatory CASSY BRICE [facility] Start: 10-07-2023 End: 10-08-2023 ambulatory CASSY BRICE [facility] Start: 10-01-2023 End: 10-01-2023 ambulatory [facility] Work Phone: Start: 10-01-2023 End: 10-01-2023 Patient encounter procedure [facility] Work Phone: Start: 09-22-2023 Non-patient / Non-visit [facility] [employer] Work Phone: Start: 12-17-2022 End: 12-17-2022 ambulatory Cassy Brice Other [facility] Other Start: 12-17-2022 Telephone encounter Cassy Brice [facility] Start: 12-10-2022 End: 12-10-2022 ambulatory Cassy Brice Other [facility] Other Start: 12-10-2022 Office outpatient vi sit 25 minutes Cassy Brice [facility] Start: 10-27-2022 End: 10-27-2022 ambulatory Cassy Brice Other [facility] Other Start: 10-27-2022 Office outpatient vi sit 25 minutes Cassy Brice [facility] Start: 06-11-2022 End: 06-12-[address] CASSY BRICE Facility:[facility] Start: 06-06-2022 End: 06-06-[address] ROBINSON SILVEIRA Facility:[facility] Start: 11-14-2021 End: 11-15-[address] CASSY BRICE Facility:[facility] Plan of Treatment Date Care Activity Detail Author MG Breast - bilateral Screening [facility] XR Chest [address] [facility] Immunizations Immunization Date Immunization Notes Care Provider Fa cility 04-19-2019 influenza virus vacc ine, unspecified formulation [facility] Payers Date Payer Category Payer Medicare [id number] 2017 Private Health Insurance [employer] NVTLL [id number] 2012 Medicare [id number] 1959 Medicare [id number] 1947 Unknown [id number] 1945 Unknown [id number] 1945 Unknown [id number] 1945 Unknown [id number] 1945 Unknown [id number] .[id number] 1945 Unknown [id number] Medicare [id number] .[id number] Self-pay Self Pay [id number] Unknown Arian BC/BS [id number] Unknown [employer] [id number] Social History Date Type Detail Facility Unknown if ever smoked [facility] Other Sex Assigned At Sex Assigned At Bir th [facility] Other Start: 12-10-2022 Tobacco smoking status NHIS Ex-smoker (finding) [facility] Start: 1945 Sex Assigned At Female F [facility] Evaluation note 12-10-2022 Note Date & Type Note Facility 12-10-2022 Evaluation note Encounter Date Diagnosis Assessment Notes Nov, COPD exacerbation (ICD-10 - J44.1) Pt agrees to pulmonary referral and necessary testing Nov, Anxiety (ICD-10 - F41.9) Multiple stressors in the past year, continue present meds. Nov, Other chronic pain (ICD-10 - G89.29) Improved from before. Continue to monitor [employer] [facility] [email or web address] Other Evaluation note 10-27-2022 Note Date & Type Note Facility 10-27-2022 Evaluation note Encounter Date Diagnosis Assessment Notes October, Anxiety (ICD-10 - F41.9) Pt requests anxiety medication as she has moved to be near family and had some significant stress. This was addressed and will start med October, Rhinorrhea (ICD-10 - J34.89) c/o chronic runny nose. agrees to medication trial October, Other chronic pain (ICD-10 - G89.29) October, Pain in right knee (ICD-10 - M25.561) Will fax order to [facility]. offered xray, ortho eval, or PT and [facility] declines. October, OAB (overactive bladder) (ICD-10 - N32.81) Will fax order for briefs to [facility]. [facility] Other Clinical Note 06-12-2022 Note Date & Type Note Facility 06-12-2022 Note PROCEDURE: XR FOOT R T MIN 3 VIEWS HISTORY: Pain in right foot , bruising, swelling over dorsum of foot after dropping object on foot COMPARISON: None. FINDINGS: BONES:Mild joint space narrowing and periarticular osteophytes involving the first metatarsophalangeal joint. Mild degenerative changes the midfoot. Calcaneal degenerative enthesopathic spurring. SOFT TISSUES:Mild dorsal soft tissue swelling. EFFUSION:None visible. OTHER: Negative. IMPRESSION: 1. No acute bone abnormality. Multifocal mild degenerative changes. Electronically authenticated by: ARACELI HICKS Date: 2022-06-12 08:01 [facility] Evaluation note Note Date & Type Note Facility Evaluation note No Information [facility] [employer] Other Evaluation note Note Date & Type Note Facility Evaluation note Diagnosis Onset Date Bronchitis acute Screening mammogram for breast cancer [facility] Work Phone: History general Narrative - Reported Note Date & Type Note Facility History general Narrative - Reported Type Medical History breast cancer Medical History COPD Medical History Hypertension Surgical History C section 1966 Surgical History appendectomy 2012 Surgical History knee replacement 2017 Surgical History breast lump removed, right 2016 [facility] Other Summary Purpose Family History No Family History Records Found Relationship Condition Age at Onset Recorded Date/T yao Not Specified Diabetes mellitus Unknown Coronary artery disease Unknown Malignant neoplasm of lung Unknown Hypertension Unknown brother Heart disease Unknown Malignant neoplasm Unknown Family history of lung cancer Unknown father Heart disease Unknown Not Specified Heart disease Unknown sister Malignant neoplasm Unknown Leukemia Unknown Advance Directives No Advanced Directives Records Found Advance Directive Response Recorded Date/ Time Advance Directives No October 04 2:39pm Reason for Referral Reason [place] office Diagnosis 1 COPD exacerbation (J 44.1) Referral Organization [facility] ervin Referring Provider First Name Cassy Referring Provider Last Name Babs Referring Provider Specialty Family [facility] Referred Organization [facility] Referred Provider Paty Travis Referred Address ,[place], [place],[address] Referred Provider Specialty Pulmonary Di seasguerrero Referral Priority Routine Chief Complaint and Reason for Visit Chief Complaint [facility] Reason for Visit Bronchitis Screening mammogram for breast cancer Additional Source Comments INFORMATION SOURCE (unrecogn ized section and content) DATE CREATED AUTHOR 06/18/2022 [facility] DATE CREATED AUTHOR AUTHOR'S ORGANIZ ATION [facility] DATE CREATED AUTHOR AUTHOR'S ALEX MATUTE [facility] REASON FOR VISIT (unrecogniz ed section and content) [facility] Care Teams (unrecognized sec tion and content) Team Status: Active Member Role Status Dates Cassy Brice MD Primary Care Provider Active Team Status: Active Member Role Status Dates Cassy Brice MD Primary Care Provide r, Attending Provider Active Start: September 22, 2023 Team Status: Inactive Member Role Status Dates Cassy Brice MD Primary Care Provide r, Attending Provider Active Start: October 01, 2023 End: October 01, 2023 Goals (unrecognized section and content) Goals may be documented in a n alternate section FOR RECORDS PERTAINING TO PATIENTS WHO ARE OR HAVE BEEN ENROLLED IN A CHEMICAL DEPENDENCY/SUBSTANCEABUSE PROGRAM, SOME INFORMATION MAY BE OMITTED. This clinical summary was aggregated from multiple sources. Caution should be exercised in using it in the provision of clinical care. This summary normalizes information from multiple sources, and as a consequence, information in this document may materially change the coding, format and clinical context of patient data. In addition, data may be omitted in some cases. CLINICAL DECISIONS SHOULD BE BASED ON THE PRIMARY CLINICAL RECORDS. [facility] [employer] [facility]. provides no warranty or guarantee of the accuracy or completeness of information in this document.
== END 2024-06-19 17:50 | disposition home or self-care (01) ==
LOC: ER 17:33
PROVIDERS: Emergency Provider Emergency Medicine; PCP Family Medicine
DX: R07.89 Other chest pain (principal); R11.2 Nausea with vomiting, unspecified; R06.02 Shortness of breath; J43.9 Emphysema, unspecified
CPT/HCPCS: 36415; 71045; 80053; 81001; 82800; 83690; 83880; 84484; 85025; 85610; 87420; 87804; 87811; 93005; 94640; 96374; 99285; J2405